=== PATIENT | female | born 1995 | race African-American/Black ===

== ENCOUNTER 2020-08-14 15:18 | Inpatient (IN) ==
--- NOTE | 2020-08-14 15:57 | Emergency Department Note ---
History of Present Illness General Chief complaint: Mental Health Evaluation Stated complaint: MENTAL HEALTH EVALUATION Time Seen by Provider: 08/14/20 15:36 Source: patient History of Present Illness Provider complaint: Depression and suicidal ideation Onset (ago): day(s) 3 Location: head Pain Consistency: + constant Quality: + other (Suicidal) Relieved By: + none Exacerbated By: + other (Stressors) Associated symptoms: no chest pain, no cough, no fever/chills, no headaches, no nausea/vomiting and no shortness of breath This is a 25-year-old female with a history of bipolar disorder presenting for mental health evaluation. The patient called her counselor at [facility] to sent her here for evaluation. She did come via police. The patient has had suicidal ideation and depression for the past 3 days. She states this is because of mostly stressors at school. She feels like she does not fit in here. She is doing poorly in classes. She does not have many friends. She also has issues with her family. She has been looking up ways on the Internet to kill herself. She states that she plans on cutting her wrists. She does admit to a prior suicide attempt with ingestion of antifreeze. She has been taking her psychiatric medications. She does drink alcohol and smokes marijuana. She has been unsuccessfully trying to stop using marijuana. She denies any fever, cough or cold symptoms, vomiting, chest pain, shortness of breath, abdominal pain or diarrhea or known exposure to COVID-19. She does complain of chronic intermittent bilateral knee pain. Home Medications Medication Instructions Recorded Confirmed Type albuterol sulfate 90 mcg/actuation 1 inh INHALATION Q4H PRN 06/15/20 08/14/20 History breath activated powder inhaler,sensor arm brace #1 ea 06/15/20 06/15/20 Rx naproxen 500 mg tablet 500 mg PO BID PRN 06/15/20 08/14/20 History sertraline 50 mg tablet 100 mg PO DAILY 06/15/20 08/14/20 History lamotrigine 25 mg tablet 100 mg PO DAILY tab 07/07/20 08/14/20 History Allergies Allergy/AdvReac Type Severity Reaction Status Date / Time No Known Allergies Allergy Verified 06/15/20 10:06 Past Med/Surg History Medical History Asthma Bipolar disorder Depression Surgical History History of wisdom tooth extraction Family History Father Hypertension Mother Hypertension Grandfather (Maternal) Glaucoma Grandmother (Maternal) Diabetes Brother Diabetes Aunt Fibroids Denies family history of Ovarian cancer Prostate cancer Myocardial infarction Breast cancer Colorectal cancer Stroke Social History Smoking Status: Current every day smoker Tobacco Type: Cigarettes Second Hand Exposure: No; Hx Alcohol Use: Yes Alcohol type: wine Alcohol Intake Frequency: 4 or More x per/Week Hx Substance Use: Yes Non-Prescribed Medications: Marijuana Preferred Language: Occitan Visual Impairment: No Limitations Hearing Ability: Normal marital status: Single Current Living Situation: Alone current occupational status: student How many Children do You have: 0 Feels Safe at Home: Yes and No Childhood Exposure to Second-Hand Smoke: No caffeine: Yes Dental Care, Regularly: No Physical Activity Frequency: 1-2 Times per Week Seatbelt Use: always Sunscreen Use: Yes Review of Systems See HPI for pertinent positives & negatives. and A total of 10 systems reviewed and were otherwise negative Physical Exam Vital Signs Vital Signs - 24 hr 08/14/20 15:20 08/14/20 18:25 Temperature 36.8 C Temperature Source Oral Pulse Rate 95 H Pulse Rate [Apical] 80 Pulse Rhythm Regular Pulse Strength Normal Respiratory Rate 16 18 Respiratory Effort / Characteristics Non-Labored Spontaneous Respiratory Depth Normal Respiratory Pattern Regular Blood Pressure 122/73 Blood Pressure [Left Arm] 134/71 Blood Pressure Mean 89 Blood Pressure Mean [Left Arm] 92 Blood Pressure Position Sitting Pulse Oximetry 98 98 Oxygen Delivery Method Room Air Room Air Sepsis Recent Fever Within 48 Hours No Sepsis New/Unexplained Change in Mental Status No Sepsis Action Taken by Nursing No Action Required Constitutional: Vital signs reviewed. Eyes: Pupils are equal round reactive to light. Conjunctiva are noninjected. ENT: Pharynx is clear without erythema or exudate. Mucous membranes are moist. Neck supple without meningeal signs. Respiratory: Clear to auscultation bilaterally. Breath sounds are equal steph aterally. Cardiovascular: Regular rate and rhythm. No rubs or gallops. GI: Soft, nondistended and nontender. Bowel sounds are present. Musculoskeletal: No peripheral edema. No increased warmth or joint line tenderness to the knees bilaterally. No erythema is noted. Integumentary: No cyanosis. or jaundice. Neurological: The patient is awake and alert. No focal deficits. Psychiatric: Depressed affect. Tearful. Medical Decision Making Differential Diagnosis Bipolar disorder, mood disorder, suicidal ideation, drug abuse, alcohol abuse Medical Records Attestation: I reviewed the patient's medical records. I did perform a limited focused review of portions of the patient's old chart on the electronic medical record. The patient has had no recent pertinent visits to this hospital. Home Medications Current Medication List: was personally reviewed by me Laboratory Data Attestation: I reviewed the patient's lab results. Result diagrams: 08/14/20 16:32 08/14/20 16:32 Lab Results 08/14/20 08/14/20 08/14/20 Range/Units 16:05 16:05 16:10 WBC (4.8-10.8) K/uL RBC (4.2-5.4) M/uL Hgb (12.0-16.0) g/dL Hct (37-47) % MCV (80-100) fL MCH (25-34) pg MCHC (32-36) g/dL RDW Std Deviation (36.4-46.3) fL RDW Coeff of [place] (11.5-14.5) % Plt Count (130-400) K/uL MPV (7.4-10.4) fL Immature Gran % (Auto) % Neut % (Auto) % Lymph % (Auto) % [place] % (Auto) % Eos % (Auto) % Baso % (Auto) % Neut # (Auto) (1.4-6.5) K/uL Lymph # (Auto) (1.2-3.4) K/uL [place] # (Auto) (0.11-0.59) K/uL Eos # (Auto) (0-0.5) K/uL Baso # (Auto) (0-0.2) K/uL Immature Gran # (Auto) (0.00-0.02) K/uL RBC Morphology Sodium (136-145) mmol/L Potassium (3.5-5.1) mmol/L Chloride (98-107) mmol/L Carbon Dioxide (21-32) mmol/L Anion Gap (3-11) BUN (7-18) mg/dl Creatinine (0.6-1.2) mg/dl Est Cr Clr Drug Dosing ml/min Est GFR ( Amer) Est GFR (Non-Af Amer) BUN/Creatinine Ratio (10-20) Glucose (70-99) mg/dl Calcium (8.5-10.1) mg/dl Total Bilirubin (0.2-1) mg/dl AST (15-37) U/L ALT (12-78) U/L Alkaline Phosphatase (45-117) U/L Total Protein (6.4-8.2) gm/dl Albumin (3.4-5.0) gm/dl Globulin (2.5-4.0) gm/dl Albumin/Globulin Ratio (0.9-2) TSH (0.300-4.500) uIu/ml Urine Color Yellow Urine Appearance Clear (Clear) Urine pH 7.5 (4.5-7.5) Ur Specific [place] 1.018 (1.000-1.030) Urine Protein Negative (Negative) Urine Glucose (UA) Negative (Negative) Urine Ketones Negative (Negative) Urine Blood Negative (Negative) Urine Nitrite Negative (Negative) Urine Bilirubin Negative (Negative) Urine Urobilinogen Negative (Negative) Ur Leukocyte Esterase Negative (Negative) POC Ur Test (NEG) Salicylates (2.8-20) mg/dl Urine Opiates Screen (Neg) Ur Methadone, Qual (Neg) Acetaminophen (10-30) ug/ml Urine Barbiturates (Neg) Ur Phencyclidine (PCP) (Neg) U Amphetamin/Meth Scrn (Neg) MDMA (Ecstasy) Screen (Neg) U Benzodiazepines Scrn (Neg) Ur Cocaine Metabolite (Neg) U Marijuana (THC) Screen (Neg) Ethyl Alcohol mg/dL (0-3) mg/dl COVID-19 Eval Order Cov[facility]Rsv at [facility] SARS-CoV-2 (PCR) NEGATIVE (Negative) Influenza Type A (PCR) Negative (Neg) Influenza Type B (PCR) Negative (Neg) RSV (RT-PCR) Negative (Neg) 08/14/20 08/14/20 08/14/20 Range/Units 16:10 16:10 16:32 WBC 7.49 (4.8-10.8) K/uL RBC 4.41 (4.2-5.4) M/uL Hgb 10.1 L (12.0-16.0) g/dL Hct 32.1 L (37-47) % MCV 72.8 L (80-100) fL MCH 22.9 L (25-34) pg MCHC 31.5 L (32-36) g/dL RDW Std Deviation 36.2 L (36.4-46.3) fL RDW Coeff of [place] 13.5 (11.5-14.5) % Plt Count 280 (130-400) K/uL MPV 10.1 (7.4-10.4) fL Immature Gran % (Auto) 0.1 % Neut % (Auto) 65.7 % Lymph % (Auto) 24.4 % [place] % (Auto) 7.3 % Eos % (Auto) 2.4 % Baso % (Auto) 0.1 % Neut # (Auto) 4.91 (1.4-6.5) K/uL Lymph # (Auto) 1.83 (1.2-3.4) K/uL [place] # (Auto) 0.55 (0.11-0.59) K/uL Eos # (Auto) 0.18 (0-0.5) K/uL Baso # (Auto) 0.01 (0-0.2) K/uL Immature Gran # (Auto) 0.01 (0.00-0.02) K/uL RBC Morphology Unremarkable Sodium (136-145) mmol/L Potassium (3.5-5.1) mmol/L Chloride (98-107) mmol/L Carbon Dioxide (21-32) mmol/L Anion Gap (3-11) BUN (7-18) mg/dl Creatinine (0.6-1.2) mg/dl Est Cr Clr Drug Dosing ml/min Est GFR ( Amer) Est GFR (Non-Af Amer) BUN/Creatinine Ratio (10-20) Glucose (70-99) mg/dl Calcium (8.5-10.1) mg/dl Total Bilirubin (0.2-1) mg/dl AST (15-37) U/L ALT (12-78) U/L Alkaline Phosphatase (45-117) U/L Total Protein (6.4-8.2) gm/dl Albumin (3.4-5.0) gm/dl Globulin (2.5-4.0) gm/dl Albumin/Globulin Ratio (0.9-2) TSH (0.300-4.500) uIu/ml Urine Color Urine Appearance (Clear) Urine pH (4.5-7.5) Ur Specific [place] (1.000-1.030) Urine Protein (Negative) Urine Glucose (UA) (Negative) Urine Ketones (Negative) Urine Blood (Negative) Urine Nitrite (Negative) Urine Bilirubin (Negative) Urine Urobilinogen (Negative) Ur Leukocyte Esterase (Negative) POC Ur Test NEG (NEG) Salicylates (2.8-20) mg/dl Urine Opiates Screen Neg (Neg) Ur Methadone, Qual Neg (Neg) Acetaminophen (10-30) ug/ml Urine Barbiturates Neg (Neg) Ur Phencyclidine (PCP) Neg (Neg) U Amphetamin/Meth Scrn Neg (Neg) MDMA (Ecstasy) Screen Neg (Neg) U Benzodiazepines Scrn Neg (Neg) Ur Cocaine Metabolite Neg (Neg) U Marijuana (THC) Screen Neg (Neg) Ethyl Alcohol mg/dL (0-3) mg/dl COVID-19 Eval Order SARS-CoV-2 (PCR) (Negative) Influenza Type A (PCR) (Neg) Influenza Type B (PCR) (Neg) RSV (RT-PCR) (Neg) 08/14/20 08/14/20 08/14/20 Range/Units 16:32 16:32 16:32 WBC (4.8-10.8) K/uL RBC (4.2-5.4) M/uL Hgb (12.0-16.0) g/dL Hct (37-47) % MCV (80-100) fL MCH (25-34) pg MCHC (32-36) g/dL RDW Std Deviation (36.4-46.3) fL RDW Coeff of [place] (11.5-14.5) % Plt Count (130-400) K/uL MPV (7.4-10.4) fL Immature Gran % (Auto) % Neut % (Auto) % Lymph % (Auto) % [place] % (Auto) % Eos % (Auto) % Baso % (Auto) % Neut # (Auto) (1.4-6.5) K/uL Lymph # (Auto) (1.2-3.4) K/uL [place] # (Auto) (0.11-0.59) K/uL Eos # (Auto) (0-0.5) K/uL Baso # (Auto) (0-0.2) K/uL Immature Gran # (Auto) (0.00-0.02) K/uL RBC Morphology Sodium 139 (136-145) mmol/L Potassium 4.3 (3.5-5.1) mmol/L Chloride 110 H (98-107) mmol/L Carbon Dioxide 27 (21-32) mmol/L Anion Gap 2.0 L (3-11) BUN 12 (7-18) mg/dl Creatinine 0.85 (0.6-1.2) mg/dl Est Cr Clr Drug Dosing 92.6 ml/min Est GFR ( Amer) 111.9 Est GFR (Non-Af Amer) 96.6 BUN/Creatinine Ratio 13.9 (10-20) Glucose 86 (70-99) mg/dl Calcium 8.2 L (8.5-10.1) mg/dl Total Bilirubin 0.2 (0.2-1) mg/dl AST 19 (15-37) U/L ALT 35 (12-78) U/L Alkaline Phosphatase 55 (45-117) U/L Total Protein 6.8 (6.4-8.2) gm/dl Albumin 3.3 L (3.4-5.0) gm/dl Globulin 3.5 (2.5-4.0) gm/dl Albumin/Globulin Ratio 0.9 (0.9-2) TSH 1.010 (0.300-4.500) uIu/ml Urine Color Urine Appearance (Clear) Urine pH (4.5-7.5) Ur Specific [place] (1.000-1.030) Urine Protein (Negative) Urine Glucose (UA) (Negative) Urine Ketones (Negative) Urine Blood (Negative) Urine Nitrite (Negative) Urine Bilirubin (Negative) Urine Urobilinogen (Negative) Ur Leukocyte Esterase (Negative) POC Ur Test (NEG) Salicylates < 1.7 L (2.8-20) mg/dl Urine Opiates Screen (Neg) Ur Methadone, Qual (Neg) Acetaminophen < 2 L (10-30) ug/ml Urine Barbiturates (Neg) Ur Phencyclidine (PCP) (Neg) U Amphetamin/Meth Scrn (Neg) MDMA (Ecstasy) Screen (Neg) U Benzodiazepines Scrn (Neg) Ur Cocaine Metabolite (Neg) U Marijuana (THC) Screen (Neg) Ethyl Alcohol mg/dL < 3.0 (0-3) mg/dl COVID-19 Eval Order SARS-CoV-2 (PCR) (Negative) Influenza Type A (PCR) (Neg) Influenza Type B (PCR) (Neg) RSV (RT-PCR) (Neg) MDM Narrative I did evaluate the patient as noted above. The patient was sent here by her counselor for suicidal ideation. She has a plan to cut her wrists. She states that she does not want to be alive anymore. She has a prior history of suicide attempt. I did order a urine analysis. She has no evidence of UTI. Her urine test is negative. I did order and review the patient's blood work as noted in the electronic medical record. Her white blood cell count is not elevated. She has a hemoglobin of 10 but she states she has a prior history of anemia. Electrolytes are unremarkable other than a chloride of 110. Toxicology screen is negative. COVID-19 test is negative.The patient was medically cleared. She was evaluated by the mental health employment case manager who recommended inpatient treatment. The patient was agreeable and signed a 201. She was admitted to the [facility] behavioral unit. Impression & Plan Mood disorder, Suicidal ideation Discharge Plan Visit Data Chief Complaint: Mental Health Evaluation Stated Complaint: MENTAL HEALTH EVALUATION ED Provider: Ernie Harris Discharge Problem: Mood disorder, Suicidal ideation Patient Disposition: Admitted As Inpatient Discharge Instructions Interventions: ED Discharge Assessment Last Done: 08/14/20 19:48
[2020-08-14 16:33] LABS: Appearance Urine Clear (Clear); Bilirubin Urine Negative (Negative); Blood Urine Negative (Negative); Color Urine Yellow; Glucose Urine UA Negative (Negative); Ketones Urine Negative (Negative); Leukocyte Esterase Urine Negative (Negative); Nitrite Urine Negative (Negative); Protein Urine Negative (Negative); Specific Gravity Urine 1.018 (1.000-1.030); Urobilinogen Urine Negative (Negative); pH Urine 7.5 (4.5-7.5)
[2020-08-14 16:48] LABS: Basophils # (auto) 0.01 K/uL (0-0.2); Basophils % (auto) 0.1 %; Eosinophils # (auto) 0.18 K/uL (0-0.5); Eosinophils % (auto) 2.4 %; Hematocrit (blood only) 32.1 % (37-47); Hemoglobin 10.1 g/dL (12.0-16.0); Immature Granulocytes # (auto) 0.01 K/uL (0.00-0.02); Immature Granulocytes % (auto) 0.1 %; Lymphocytes # (auto) 1.83 K/uL (1.2-3.4); Lymphocytes % (auto) 24.4 %; Mean Corpuscular Hemoglobin 22.9 pg (25-34); Mean Corpuscular Hgb Conc 31.5 g/dL (32-36); Mean Corpuscular Volume 72.8 fL (80-100); Mean Platelet Volume 10.1 fL (7.4-10.4); Monocytes # (auto) 0.55 K/uL (0.11-0.59); Monocytes % (auto) 7.3 %; Neutrophils # (auto) 4.91 K/uL (1.4-6.5); Neutrophils % (auto) 65.7 %; Platelet Count 280 K/uL (130-400); RDW Coefficient of Variation 13.5 % (11.5-14.5); RDW Standard Deviation 36.2 fL (36.4-46.3); Red Blood Count 4.41 M/uL (4.2-5.4); White Blood Count 7.49 K/uL (4.8-10.8)
[2020-08-14 16:53] LABS: Influenza A virus by PCR Negative (Neg); Influenza B virus by PCR Negative (Neg); RSV by PCR Negative (Neg); SARS CoV2 RNA(COVID-19) InHosp NEGATIVE (Negative)
[2020-08-14 17:04] LABS: Amphetamines+Metham, Urine Neg (Neg); Barbiturates, Urine Neg (Neg); Benzodiazepine, Urine Neg (Neg); Cocaine, Urine Neg (Neg); MDMA (Ecstacy), Urine Neg (Neg); Methadone, Urine Neg (Neg); Opiate, Urine Neg (Neg); Phencyclidine, Urine Neg (Neg)
[2020-08-14 17:09] LABS: RBC Morphology Unremarkable
[2020-08-14 17:15] LABS: Acetaminophen < 2 ug/ml (10-30); Albumin Level 3.3 gm/dl (3.4-5.0); BUN Creatinine Ratio 13.9 (10-20); Calcium 8.2 mg/dl (8.5-10.1); Creatinine Clr Calc Pharmacy 92.6 ml/min; Est GFR (African American) 111.9; Est GFR (Non-African American) 96.6; Potassium 4.3 mmol/L (3.5-5.1); Salicylate < 1.7 mg/dl (2.8-20)
[2020-08-14 17:26] LABS: Albumin Globulin Ratio 0.9 (0.9-2); Bilirubin,Total 0.2 mg/dl (0.2-1); Globulin 3.5 gm/dl (2.5-4.0); Thyroid Stimulating Hormone 1.01 uIu/ml (0.300-4.500); Total Protein 6.8 gm/dl (6.4-8.2)
[2020-08-14] MEDS ORDERED: BISMUTH SUBSALICYLATE LIQD 236 ML PO PRN (19:21)
[2020-08-14] MEDS ORDERED: NICOTINE POLACRILEX 2 MG GUM MT PRN (19:21)
[2020-08-14] MEDS ORDERED: ACETAMINOPHEN 325 MG TAB PO PRN (19:21)
[2020-08-14] MEDS ORDERED: SODIUM CHLORIDE 0.65% NA SOLN 45 ML (OCEAN) PRN (19:21)
[2020-08-14] MEDS ORDERED: ALUMINUM/MAGNESIUM SUSP 30 ML UDC PO PRN (19:21)
[2020-08-14] MEDS ORDERED: MAGNESIUM HYDROXIDE SUSP 30 ML UDC PO PRN (19:21)
[2020-08-14] MEDS ORDERED: hydrOXYzine HCl 25 MG TAB PO PRN (19:21)
[2020-08-14] MEDS ORDERED: ALBUTEROL HFA 8 GM INHALER INH PRN (19:41)
[2020-08-14] MEDS: NAPROXEN 250 MG TAB PO PRN (22:03)
[2020-08-14] MEDS: hydrOXYzine HCl 25 MG TAB PO PRN (22:54)
--- NOTE | 2020-08-15 06:40 | History & Physical ---
Date of Service August 15, 2020 Impression / Recommendations Impression Patient with recent diagnosis of bipolar disorder who presents with suicidal ideation in the context of mood instability, school and relationship stress. She came to [place] last semester to get a graduate degree, and reports feeling overwhelmed by schoolwork, with limited local supports. She started treatment at [facility] and recently started lamotrigine, which we will continue to titrate to target mood stability. Inpatient treatment is medically necessary at this time due to the severity of her symptoms and risk for suicide if discharged prematurely. (1) Suicidal ideation: 08/15 - Continue voluntary inpatient treatment, suicide checks for safety. - Group and therapy, work on healthy coping skills and discharge safety plan. (2) Bipolar disorder: 08/15 -patient reports current medication regimen has been helpful, but continues to have manic and depressive episodes. She just recently started lamotrigine, and has been on 100 mg for 2 weeks, so will increase to 200 mg daily to target mood instability. Continue sertraline 100 mg daily, and coordinate with outpatient clinicians at [facility]/schedule follow-up appointments. 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 Chief Complaint "Last week I started getting really overwhelmed...". History of Present Illness Patient presented to the ER via police after talking to her outpatient therapist who recommended inpatient treatment. She reported a diagnosis of bipolar disorder with depressive symptoms (anergia, anhedonia, social withdraw, and increased sleep), and last week had a manic episode with increased spending, eating, and activity. She reported school and relationship stressors, stating she was not doing well in school, not fit in, and strained relationships with family. She reported drinking 4+ days/week and smoking marijuana. Admission labs notable for low hemoglobin and hematocrit, normal TSH, UA, negative UDS and test. She signed in voluntarily for treatment. On my assessment, she states she was feeling stressed and overwhelmed due to school, which worsened last week as preparing for a big exam last . During that week, she felt more anxious and energized, but the day following the exam started to feel depressed. She "tried to take a break" over the weekend and rest, but woke up Friday morning feeling overwhelmed, depressed and suicidal, and "started researching ways" to harm herself online. She called her therapist who advised her to come in to the hospital. Additional stressors are upcoming finals, limited local support. Has had suicidal thoughts in the past, "just wanting to end it," and attempted to end her life last semester by overdose on Ibuprofen and antifreeze, stating she doesn't remember how many pills she took. She did not seek treatment at the time, but afterwards started treatment at [facility]. She reports being diagnosed with bipolar disorder at that time, describes manic episodes as up to a week of high mood, lots of energy, rapid speech and thoughts, wanting "instant gratification," with excessive spending (getting take out as doesn't feel like cooking), spending $50-100 more than she'd like. Denies decreased need for sleep, psychotic symptoms. Mood has been depressed since Fri. (4 days ago), with no motivation, just wanting to watch tv or read, increase in appetite, increase in sleep (napping between classes). Denies anhedonia. Thinks lamotrigine was added about a month ago, has been on 100mg for 2 weeks, and thinks it is helping to stabilize mood. Reports long standing anxiety/worry, "feeling stressed out," focusing on "the worst case scenarios," which she usually manages by exercise, but has not been doing that recently. [place] panicky at time of her exam last week with difficulty breathing and heart racing (denies any previous panic), PTSD, OCD, HI. Has a couple of friends here, but main supports are family and friends in [place]. She is planning to return home for a visit on and is very focused on making her train. She would like to work on stress management and "information on how to handle my manic episodes." Past Psychiatric History Previous Psych History: Previous treatment in [place] while in undergraduate, was initially diagnosed with depression and started on sertraline, recently was changed to bipolar and lamotrigine was added. Current Psychiatric Diagnosis: per EMR, depression and bipolar Outpatient Services: [facility]: psychiatrist Dr. Alvarado, therapist Janet. Previous Psych Admissions: Denies Do You Have Access To A Gun?: No History of Previous Suicide Attempt: Yes (ingested antifreeze and Ibuprofen last semester) Past Medication Trials: Denies Allergies Allergy/AdvReac Type Severity Reaction Status Date / Time No Known Allergies Allergy Verified 06/15/20 10:06 Home Medications Medication Instructions Recorded Confirmed Type albuterol sulfate 90 mcg/actuation 1 inh INHALATION Q4H PRN 06/15/20 08/14/20 History breath activated powder inhaler,sensor arm brace #1 ea 06/15/20 06/15/20 Rx naproxen 500 mg tablet 500 mg PO BID PRN 06/15/20 08/14/20 History sertraline 50 mg tablet 100 mg PO DAILY 06/15/20 08/14/20 History lamotrigine 25 mg tablet 100 mg PO DAILY tab 07/07/20 08/14/20 History Family History Family History of: Depression (mother) Alcohol History Hx of Alcohol Use Over the Past 12 Months: Yes AUDIT Total Score: 3 Smoking Use tobacco type: cigarettes Smoking Status: Current every day smoker Smoking packs per day: 0.3 Substance History Hx of Prescription Med Misuse Over the Past 12 Months: No Hx of Over the Counter Med Misuse Over the Past 12 Months: No Hx of Inhalent Misuse Over the Past 12 Months: No Hx of Organic Substance Use Over the Past 12 Months: Yes Hx of Illegal Substances/Street Drug Use Over Past 12 Months: No Problems as a Result of Past Substance Use: None Identified Personal History Living Arrangements: Apartment Living Arrangements Comments: alone in [place] Childhood: From [place], and went to [facility] there. 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) Marital Status: Single Beliefs That Will Affect Care: None Current Legal Problems: No Hx Traumatic Life Events: No Patient History Medical History Asthma Bipolar disorder Depression Surgical History History of wisdom tooth extraction Family History Father Hypertension Mother Hypertension Grandfather (Maternal) Glaucoma Grandmother (Maternal) Diabetes Brother Diabetes Aunt Fibroids Denies family history of Ovarian cancer Prostate cancer Myocardial infarction Breast cancer Colorectal cancer Stroke Social History Smoking Status: Current every day smoker Tobacco Type: Cigarettes Second Hand Exposure: No; Hx Alcohol Use: Yes Alcohol type: wine Alcohol Intake Frequency: 4 or More x per/Week Hx Substance Use: Yes Non-Prescribed Medications: Marijuana Preferred Language: German Communication Ability: Effective Visual Impairment: No Limitations Hearing Ability: Normal Beliefs That Will Affect Care: None marital status: Single Current Living Situation: Alone current occupational status: student How many Children do You have: 0 Feels Safe at Home: Yes and No Childhood Exposure to Second-Hand Smoke: No caffeine: Yes Dental Care, Regularly: No Physical Activity Frequency: 1-2 Times per Week Seatbelt Use: always Sunscreen Use: Yes Assistive Devices: Glasses Assistive Devices Comment: Pt does wear glasses and retainers but left them at home. Review of Systems Review of Systems: All systems reviewed & are unremarkable except as noted in HPI & below chronic knee pain - has appt with orthopedics later this month Physical Exam Psychiatric: Orientation: alert and cooperative Apperance: appropriately dressed, appropriately groomed and appeared stated age Well-nourished well- developed black female appearing her stated age. Dressed in khakis, T-shirt, wrapped in a blanket. Wearing a hair cap. Seated in no acute distress. Eye Contact: + poor eye contact Avoids eye contact. Motor Behavior: steady gait and station and no abnormal motor movements Speech: normal rate/rhythm/volume of speech Reactive, incongruent with stated mood. Mood: + depressed mood Thought Process: goal directed thought process Thought Content: reality based without delusions Suicidal Thoughts: + reports suicidal thoughts Homicidal Thoughts: denies homicidal thoughts Hallucinations: no auditory hallucinations and no visual hallucinations Cognition: recent memory grossly intact, attention grossly intact and language grossly intact; + remote memory not intact (Unable to recall information about her suicide attempt last semester) Insight: + fair insight Judgement: + fair judgement Vital Signs (Past 24 Hours): Last Vital Signs Temp 37.2 C 08/14/20 21:04 Pulse 72 08/14/20 21:04 Resp 20 08/14/20 21:04 BP 103/66 08/14/20 21:04 Pulse Ox 100 08/14/20 21:04 Exam Statement: A physical exam was performed in the ER prior to admission to the unit by Dr. Ernie Harris. I accept that physical as correct/medical cl earance for the inpatient physical exam. Results & Data ([facility]) Laboratory Results Laboratory Results - last 24 hr 08/14/20 08/14/20 08/14/20 16:05 16:05 16:10 WBC RBC Hgb Hct MCV MCH MCHC RDW Std Deviation RDW Coeff of [place] Plt Count MPV Immature Gran % (Auto) Neut % (Auto) Lymph % (Auto) [place] % (Auto) Eos % (Auto) Baso % (Auto) Neut # (Auto) Lymph # (Auto) [place] # (Auto) Eos # (Auto) Baso # (Auto) Immature Gran # (Auto) RBC Morphology Sodium Potassium Chloride Carbon Dioxide Anion Gap BUN Creatinine Est Cr Clr Drug Dosing Est GFR ( Amer) Est GFR (Non-Af Amer) BUN/Creatinine Ratio Glucose Calcium Total Bilirubin AST ALT Alkaline Phosphatase Total Protein Albumin Globulin Albumin/Globulin Ratio TSH Urine Color Yellow Urine Appearance Clear Urine pH 7.5 Ur Specific [place] 1.018 Urine Protein Negative Urine Glucose (UA) Negative Urine Ketones Negative Urine Blood Negative Urine Nitrite Negative Urine Bilirubin Negative Urine Urobilinogen Negative Ur Leukocyte Esterase Negative POC Ur Test Salicylates Urine Opiates Screen Ur Methadone, Qual Acetaminophen Urine Barbiturates Ur Phencyclidine (PCP) U Amphetamin/Meth Scrn MDMA (Ecstasy) Screen U Benzodiazepines Scrn Ur Cocaine Metabolite U Marijuana (THC) Screen Ethyl Alcohol mg/dL COVID-19 Eval Order CovFluRsv at [facility] SARS-CoV-2 (PCR) NEGATIVE Influenza Type A (PCR) Negative Influenza Type B (PCR) Negative RSV (RT-PCR) Negative 08/14/20 08/14/20 08/14/20 16:10 16:10 16:32 WBC 7.49 RBC 4.41 Hgb 10.1 L Hct 32.1 L MCV 72.8 L MCH 22.9 L MCHC 31.5 L RDW Std Deviation 36.2 L RDW Coeff of [place] 13.5 Plt Count 280 MPV 10.1 Immature Gran % (Auto) 0.1 Neut % (Auto) 65.7 Lymph % (Auto) 24.4 [place] % (Auto) 7.3 Eos % (Auto) 2.4 Baso % (Auto) 0.1 Neut # (Auto) 4.91 Lymph # (Auto) 1.83 [place] # (Auto) 0.55 Eos # (Auto) 0.18 Baso # (Auto) 0.01 Immature Gran # (Auto) 0.01 RBC Morphology Unremarkable Sodium Potassium Chloride Carbon Dioxide Anion Gap BUN Creatinine Est Cr Clr Drug Dosing Est GFR ( Amer) Est GFR (Non-Af Amer) BUN/Creatinine Ratio Glucose Calcium Total Bilirubin AST ALT Alkaline Phosphatase Total Protein Albumin Globulin Albumin/Globulin Ratio TSH Urine Color Urine Appearance Urine pH Ur Specific [place] Urine Protein Urine Glucose (UA) Urine Ketones Urine Blood Urine Nitrite Urine Bilirubin Urine Urobilinogen Ur Leukocyte Esterase POC Ur Test NEG Salicylates Urine Opiates Screen Neg Ur Methadone, Qual Neg Acetaminophen Urine Barbiturates Neg Ur Phencyclidine (PCP) Neg U Amphetamin/Meth Scrn Neg MDMA (Ecstasy) Screen Neg U Benzodiazepines Scrn Neg Ur Cocaine Metabolite Neg U Marijuana (THC) Screen Neg Ethyl Alcohol mg/dL COVID-19 Eval Order SARS-CoV-2 (PCR) Influenza Type A (PCR) Influenza Type B (PCR) RSV (RT-PCR) 08/14/20 08/14/20 08/14/20 16:32 16:32 16:32 WBC RBC Hgb Hct MCV MCH MCHC RDW Std Deviation RDW Coeff of [place] Plt Count MPV Immature Gran % (Auto) Neut % (Auto) Lymph % (Auto) [place] % (Auto) Eos % (Auto) Baso % (Auto) Neut # (Auto) Lymph # (Auto) [place] # (Auto) Eos # (Auto) Baso # (Auto) Immature Gran # (Auto) RBC Morphology Sodium 139 Potassium 4.3 Chloride 110 H Carbon Dioxide 27 Anion Gap 2.0 L BUN 12 Creatinine 0.85 Est Cr Clr Drug Dosing 92.6 Est GFR ( Amer) 111.9 Est GFR (Non-Af Amer) 96.6 BUN/Creatinine Ratio 13.9 Glucose 86 Calcium 8.2 L Total Bilirubin 0.2 AST 19 ALT 35 Alkaline Phosphatase 55 Total Protein 6.8 Albumin 3.3 L Globulin 3.5 Albumin/Globulin Ratio 0.9 TSH 1.010 Urine Color Urine Appearance Urine pH Ur Specific [place] Urine Protein Urine Glucose (UA) Urine Ketones Urine Blood Urine Nitrite Urine Bilirubin Urine Urobilinogen Ur Leukocyte Esterase POC Ur Test Salicylates < 1.7 L Urine Opiates Screen Ur Methadone, Qual Acetaminophen < 2 L Urine Barbiturates Ur Phencyclidine (PCP) U Amphetamin/Meth Scrn MDMA (Ecstasy) Screen U Benzodiazepines Scrn Ur Cocaine Metabolite U Marijuana (THC) Screen Ethyl Alcohol mg/dL < 3.0 COVID-19 Eval Order SARS-CoV-2 (PCR) Influenza Type A (PCR) Influenza Type B (PCR) RSV (RT-PCR) Current Inpatient Medications Current Inpatient Medications: Current Inpatient Medications Acetaminophen (Acetaminophen 325 Mg Tab) 650 mg PO Q4H PRN PRN Reason: Headache or Minor Fever Stop: 09/13/20 19:20 Al Hydrox/Mg Hydrox/Simethicone (Aluminum/Magnesium Susp 30 Ml Udc) 30 ml PO Q4H PRN PRN Reason: GI Upset Stop: 09/13/20 19:20 Albuterol (Albuterol Hfa 8 Gm Inhaler) 1 puffs INH Q4H PRN PRN Reason: Congestion Stop: 09/13/20 19:40 Bismuth Subsalicylate (Bismuth Subsalicylate Liqd 236 Ml) 15 ml PO PRN PRN PRN Reason: Loose Stool Stop: 09/13/20 19:20 Hydroxyzine HCl (Hydroxyzine Hcl 25 Mg Tab) 50 mg PO HSZ PRN PRN Reason: Insomnia Stop: 09/13/20 19:20 Last Admin: 08/14/20 22:54 Dose: 50 mg Documented by: Hydroxyzine HCl (Hydroxyzine Hcl 25 Mg Tab) 25 mg PO Q4H PRN PRN Reason: Anxiety Stop: 09/13/20 19:20 Lamotrigine (Lamotrigine 100 Mg Tab) 100 mg PO DAILY CONNIE Stop: 09/14/20 08:59 Magnesium Hydroxide (Magnesium Hydroxide Susp 30 Ml Udc) 30 ml PO DAILY PRN PRN Reason: Constipation Stop: 09/13/20 19:20 Naproxen (Naproxen 250 Mg Tab) 500 mg PO BID PRN PRN Reason: pain Stop: 09/13/20 20:59 Last Admin: 08/14/20 22:03 Dose: 500 mg Documented by: Nicotine Polacrilex (Nicotine Polacrilex 2 Mg Gum) 1 piece MT PRN PRN PRN Reason: Nicotine Withdrawal Stop: 09/13/20 19:20 Sertraline HCl (Sertraline Hcl 100 Mg Tablet) 100 mg PO DAILY CONNIE Stop: 09/14/20 08:59 Sodium Chloride (Sodium Chloride 0.65% Na Soln 45 Ml ([place])) 1 - 2 sprays NA PRN PRN PRN Reason: Nasal Dryness/Congestion Stop: 09/13/20 19:20
[2020-08-15] MEDS ORDERED: lamoTRIgine 100 MG TAB PO SCH (09:00)
[2020-08-15] MEDS: SERTRALINE HCL 100 MG TABLET PO SCH (09:12)
[2020-08-15] MEDS ORDERED: lamoTRIgine 100 MG TAB PO ONE (09:56)
[2020-08-15] MEDS: NAPROXEN 250 MG TAB PO PRN (17:17)
[2020-08-15] MEDS: hydrOXYzine HCl 25 MG TAB PO PRN (20:15)
[2020-08-16] MEDS: SERTRALINE HCL 100 MG TABLET PO SCH (09:02)
[2020-08-16] MEDS: lamoTRIgine 100 MG TAB PO SCH (09:02)
--- NOTE | 2020-08-16 12:02 | Psychiatric Progress Note ---
Date of Service August 16, 2020 Impression / Recommendations Impression Patient with recent diagnosis of bipolar disorder who presents with suicidal ideation in the context of mood instability, school and relationship stress. She came to [place] last semester to get a graduate degree, and reports feeling overwhelmed by schoolwork, with limited local supports. She started treatment at [facility] and recently started lamotrigine, which we will continue to titrate to target mood stability. Inpatient treatment is medically necessary at this time due to the severity of her symptoms and risk for suicide if discharged prematurely. (1) Suicidal ideation: 08/15 - Continue voluntary inpatient treatment, suicide checks for safety. - Group and therapy, work on healthy coping skills and discharge safety plan. 08/16 - Pt denying SI - Will encourage completion of written safety plan (2) Bipolar disorder: 08/15 -patient reports current medication regimen has been helpful, but continues to have manic and depressive episodes. She just recently started lamotrigine, and has been on 100 mg for 2 weeks, so will increase to 200 mg daily to target mood instability. Continue sertraline 100 mg daily, and coordinate with outpatient clinicians at [facility]/schedule follow-up appointments. 08/16 - Continue scheduled medication regimen as above. Pt does request to discuss medications for sleep. She admits hydroxyzine has been helpful and is hopeful to continue this on discharge. Willing for a retrial of melatonin, which she states she had used in the past so will have available as needed - Aside from episodes of migraine headaches, patient has been cooperative and engaged in programming. - Pt will continue services at [facility] and is hopeful for possible discharge tomorrow - Family meeting was offered and declined consistently by patient, she has been cooperative otherwise (3) Asthma: 08/15 - Continue home inhaler Risk Factors Assessment Male: No Do You Have Access To A Gun?: No Health Problems: Yes Mental Health Diagnoses: Yes Substance Use Disorders: Yes Previous Attempt: Yes Previous Psychiatric Hospitalization: No Hopelessness: Yes Smoker: Yes Protective Factors Assessment : No Responsible for Young Children: No Employed: No Good Rapport with Provider: Yes Interval History Identifying Information 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 Chief Complaint "Um, yeah...I'm sorry. My head is just..." Review of Systems Notes Constitutional: reports migraine headaches, frequent since admission Cardiovascular: denied Respiratory: denied Gastrointestinal: denied Neurological: denied Psychiatric: denies symptoms other than stated above Total of at least 10 systems reviewed, pertinent positives as above and in HPI. Sleep Information Total Hours of Sleep: 8.5 Sleep Comments: pt given vistarl per rn. pt on q-15 minute check Meal Information Percent Meal Consumed - Breakfast: 100 Percent Meal Consumed - Lunch: 100 Percent Meal Consumed - Dinner: 80 Subjective Subjective Patient was seen & assessed and interval progress reviewed with treatment team. Staff report the patient has been participating in group programming. She has been denying SI. Pt has been getting daily migraines, but otherwise is interactive and pleasant. Pt is refusing a family meeting. She rated her mood an 8/10 and "calm" last evening. Pt was seen today to assess progress since admission. Unfortunately, at the time of our encounter the patient is experiencing a migraine headache - she had been isolated to her room for most of the afternoon. Pt did agree to conversation to provider this ISABELLA with updates on her treatment thus far. Pt denies ongoing SI and admits that overall she is feeling better. Pt believes she has benefitted most from 1:1 conversations with staff. She reports feeling confident with medication changes, but did wish to discuss sleep medications in greater detail. Pt remains hopeful for discharge tomorrow. She did request ice water which was provided, but otherwise denied additional needs at this time. Physical Exam Psychiatric Orientation: alert, oriented x 3 and cooperative (at least superficially) Apperance: appropriately dressed and appropriately groomed Pt is observed to be laying in dark room, blinds closed. Ice pack is covering her eyes. She is resting due to current migraine headache Eye Contact: + poor eye contact (eyes covered with ice pack for majority of encounter) Motor Behavior: no abnormal motor movements (observed while laying in bed) Speech: normal rate/rhythm/volume of speech Affect: + blunted affect (subdued) has a migraine headache at time of encounter Mood: no depressed mood and no anxious mood "a lot better" Thought Process: goal directed thought process and clear/coherent thought process Thought Content: reality based without delusions; no hopelessness and no worthlessness Suicidal Thoughts: denies suicidal thoughts and denies suicidal intent Homicidal Thoughts: denies homicidal thoughts Hallucinations: no auditory hallucinations and no visual hallucinations Cognition: attention grossly intact and language grossly intact Estimated Intelligence: consistent with education level Insight: + fair insight Judgement: + fair judgement Vital Signs (Past 24 Hours) Last Vital Signs Temp 36.7 C 08/16/20 06:55 Pulse 74 08/16/20 06:56 Resp 16 08/16/20 06:55 BP 100/63 08/16/20 06:56 Pulse Ox 100 08/14/20 21:04 Results & Data ([facility]) Current Inpatient Medications Current Inpatient Medications: Current Inpatient Medications Acetaminophen (Acetaminophen 325 Mg Tab) 650 mg PO Q4H PRN PRN Reason: Headache or Minor Fever Stop: 09/13/20 19:20 Al Hydrox/Mg Hydrox/Simethicone (Aluminum/Magnesium Susp 30 Ml Udc) 30 ml PO Q4H PRN PRN Reason: GI Upset Stop: 09/13/20 19:20 Albuterol (Albuterol Hfa 8 Gm Inhaler) 1 puffs INH Q4H PRN PRN Reason: Congestion Stop: 09/13/20 19:40 Bismuth Subsalicylate (Bismuth Subsalicylate Liqd 236 Ml) 15 ml PO PRN PRN PRN Reason: Loose Stool Stop: 09/13/20 19:20 Hydroxyzine HCl (Hydroxyzine Hcl 25 Mg Tab) 50 mg PO HSZ PRN PRN Reason: Insomnia Stop: 09/13/20 19:20 Last Admin: 08/15/20 20:15 Dose: 50 mg Documented by: Hydroxyzine HCl (Hydroxyzine Hcl 25 Mg Tab) 25 mg PO Q4H PRN PRN Reason: Anxiety Stop: 09/13/20 19:20 Lamotrigine (Lamotrigine 100 Mg Tab) 200 mg PO DAILY CONNIE Stop: 09/15/20 08:59 Last Admin: 08/16/20 09:02 Dose: 200 mg Documented by: Magnesium Hydroxide (Magnesium Hydroxide Susp 30 Ml Udc) 30 ml PO DAILY PRN PRN Reason: Constipation Stop: 09/13/20 19:20 Naproxen (Naproxen 250 Mg Tab) 500 mg PO BID PRN PRN Reason: pain Stop: 09/13/20 20:59 Last Admin: 08/15/20 17:17 Dose: 500 mg Documented by: Nicotine Polacrilex (Nicotine Polacrilex 2 Mg Gum) 1 piece MT PRN PRN PRN Reason: Nicotine Withdrawal Stop: 09/13/20 19:20 Sertraline HCl (Sertraline Hcl 100 Mg Tablet) 100 mg PO DAILY CONNIE Stop: 09/14/20 08:59 Last Admin: 08/16/20 09:02 Dose: 100 mg Documented by: Sodium Chloride (Sodium Chloride 0.65% Na Soln 45 Ml ([place])) 1 - 2 sprays NA PRN PRN PRN Reason: Nasal Dryness/Congestion Stop: 09/13/20 19:20 Mental Health & Subst Abuse Tx Psychiatrist Name of Psychiatrist: Jay Alvarado Psychiatrist's Psychiatric Appointment Comment: Virtual appt Therapist Name of Therapist: Jay Whitley Therapist's Date of Therapist Appointment: 08/18/20 Time of Therapist Appointment: 11:00 a.m. Therapy Appointment Comment: Virtual appt Public Address System Installer Name of Public Address System Installer: [facility] Lisa Feng Phone Number for Public Address System Installer: [phone] Date of Appointment with Public Address System Installer: 08/22/20 Time of Appointment with Public Address System Installer: 1:00 p.m. Case Management Appointment Comment: Will call you to discuss school reintegration Post Discharge Appointments Primary Care Physician Name Of Family Doctor: [facility] Time of Appointment with PCP: Please follow up as needed Provider Appointment Comment: [facility] Other #1: Name of Aftercare Appointment: [facility] Phone Number of Aftercare Appointment: [phone] Contact Information Discharge Discharge Address: [address] [place] [address], [place] [address]
[2020-08-16] MEDS: NAPROXEN 250 MG TAB PO PRN (14:22)
[2020-08-16] MEDS: hydrOXYzine HCl 25 MG TAB PO PRN (20:57)
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
[2020-08-17] MEDS: SERTRALINE HCL 100 MG TABLET PO SCH (09:32)
[2020-08-17] MEDS: lamoTRIgine 100 MG TAB PO SCH (09:32)
== END 2020-08-17 11:00 | disposition home or self-care (01) | DRG 885 ==
LOC: ED 15:18 → 3S 19:21

== ENCOUNTER 2021-06-07 13:47 | Inpatient (IN) ==
[2021-06-07] MEDS ORDERED: LORazepam 2 MG/ML VIAL (IM USE) IM STA ×2 (14:01→17:37)
[2021-06-07] MEDS ORDERED: HALOPERIDOL LACTATE 5 MG/ML 1 ML VIAL IM STA (14:01)
--- NOTE | 2021-06-07 14:19 | Emergency Department Note ---
Impression & Plan Altered mental status, Confusion, Bipolar disorder, Anemia ED Provider Note NAME: WHITNEY NOLASCO AGE: 26 SEX: F : 1995 ARRIVES VIA: Ambulance INFORMANT: Patient, EMS ED PROVIDER(S): Beck Lua DO CHIEF COMPLAINT: Agitation HPI: Patient is a 26-year-old female brought in by EMS as she was found in the hallway of the building thrashing around on the floor. EMS notes that they gave her benzos prior to arrival and this improved. She was not having a seizure and she was intermittently talking. Upon arrival to the ER she is intermittently thrashing about in the stretcher and then will lay back and will intermittently be talking. She has some pressured speech and is very easily agitated. She denies any suicidal or homicidal ideations. She does admit to depression. She denies any headache or change in vision. No chest pain or shortness of breath. No nausea, vomiting or diarrhea. She is able to elaborate that she is here for school initially from outside the [facility]. She admits that she smokes marijuana but denies all other drugs and alcohol. ROS: See above HPI for pertinent positives & negatives. A total of 10 systems reviewed and were otherwise negative. PAST MEDICAL HISTORY:See Below PAST SURGICAL HISTORY:See Below FAMILY HISTORY:See Below SOCIAL HISTORY:See Below HOME MEDICATIONS:See Below ALLERGIES:See Below VITALS:See Below PHYSICAL EXAMINATION: GENERAL: Sitting up in bed, alert, intermittently agitated thrashing about EYE EXAM: Conjunctive is injected. PERRL and EOM's grossly intact. HEAD: NC/AT OROPHARYNX: no exudate, no erythema, lips, buccal mucosa, and tongue normal and mucous membranes are moist NECK: supple, no nuchal rigidity, no adenopathy, non-tender LUNGS: Clear to auscultation. Normal chest wall mechanics HEART: no murmurs, S1 normal and S2 normal ABDOMEN: abdomen soft, non-tender, normo-active bowel sounds, no masses, no rebound or guarding. BACK: Back is symmetrical on inspection and there is no deformity, no midline tenderness, no CVA tenderness. SKIN: no rashes and no bruising UPPER EXTREMITIES: upper extremities are grossly normal. LOWER EXTREMITIES: No pitting edema. NEURO EXAM: Awake alert intermittently following commands. No focal deficit. MEDICAL DECISION MAKING: Patient is a 26-year-old female who presents the ER for the above-stated compla int. She was brought in by EMS for confusion and agitation. IV was established blood was obtained. Labs show no significant leukocytosis. She was afebrile. Mild anemia at 9.8 consistent with previous. She was slightly tachycardic. BMP along with LFTs bilirubin and TSH was unremarkable. hCG was negative. UA was contaminated with multiple epithelial cells. Tox was negative in regards to sa licylates, acetaminophen and alcohol. UA tox is otherwise pending. Initially she was fairly agitated and intermittently following commands. EMS did give her a dose of Ativan prior to arrival. On reevaluation she has become lethargic/unresponsive but moans to sternal rub. She was given IV fluids. Uncertain if she ingested additional medications prior to arrival with her previous psychiatric history and suicide ideations. No obvious signs of infections. Discussed with hospitalist for further evaluation/observation as I do favor that she likely ingested something else prior to arrival and prolonged observation and confusion. Triage Nursing notes reviewed. Limited review of prior medical records performed Vital Signs: reviewed and remarkable for no significant abnormalities Differential diagnosis: Differential diagnoses includes but is not limited to toxic, metabolic, infectious, traumatic, cardiac, neurologic, hematologic, psychiatric and inflammatory etiologies. ER treatment provided: See below Diagnostics interpreted by me: ECG: Sinus rhythm rate 88 Normal axis No PVCs Diffuse J-point elevation QTC 430 Cardiac Monitoring: An order was placed for continuous cardiac monitoring. The monitor shows a rate of 120 with sinus rhythm. Laboratory studies: As stated above and show below. Imaging studies: CT head was negative Chest x-ray was unremarkable Consultation(s): Discussed with Livier from the Hospitalist service from [facility] service Procedures: none Critical Care: None Past Med/Surg History Medical History Asthma Bipolar disorder Pain of right patellofemoral joint Suicidal ideation Surgical History History of wisdom tooth extraction Family History Father Hypertension Mother Hypertension Grandfather (Maternal) Glaucoma Grandmother (Maternal) Diabetes Brother Diabetes Aunt Fibroids Denies family history of Ovarian cancer Prostate cancer Myocardial infarction Breast cancer Colorectal cancer Stroke Social History (Updated 11/09/20 @ 10:04 by Gisel Jamison) Smoking Status: Unknown if ever smoked Tobacco Type: Cigarettes Cigarettes Per Day: 2; Second Hand Exposure: No; Hx Alcohol Use: Yes Alcohol type: wine Alcohol Intake Frequency: 4 or More x per/Week Hx Substance Use: Yes Non-Prescribed Medications: Marijuana Preferred Language: Honduran Communication Ability: Effective Visual Impairment: No Limitations Hearing Ability: Normal Road Roller Engineer Required: No Beliefs That Will Affect Care: None marital status: Single Current Living Situation: Alone current occupational status: student How many Children do You have: 0 Feels Safe at Home: Declines to Answer Childhood Exposure to Second-Hand Smoke: No caffeine: Yes Dental Care, Regularly: No Physical Activity Frequency: 1-2 Times per Week Seatbelt Use: always Sunscreen Use: Yes Assistive Devices: Glasses Allergies Allergies Allergy/AdvReac Type Severity Reaction Status Date / Time No Known Allergies Allergy Verified 06/07/21 15:48 Home Meds Home Medications Medication Instructions Recorded Confirmed albuterol sulfate 90 mcg/actuation 1 inh INHALATION Q4H PRN 06/15/20 11/09/20 breath activated powder inhaler,sensor naproxen 500 mg tablet 500 mg PO BID PRN 06/15/20 11/09/20 sertraline 50 mg tablet 100 mg PO DAILY 06/15/20 11/09/20 Previous Rx's Medication Instructions Recorded arm brace (Wrist Brace) #1 ea 06/15/20 lamotrigine 100 mg tablet 200 mg PO DAILY #60 tab 08/17/20 Results & Data (ED) Vital Signs Vital Signs - 24 hr 06/07/21 15:00 06/07/21 15:08 Temperature 37.2 C Temperature Source Oral Pulse Rate 120 H Respiratory Rate 20 Blood Pressure 128/73 Blood Pressure Mean 91 Blood Pressure Position Lying Pulse Oximetry 97 97 Oxygen Delivery Method Room Air Room Air Sepsis Recent Fever Within 48 Hours No Sepsis New/Unexplained Change in Mental Status N/A Sepsis Action Taken by Nursing No Action Required Laboratory Data Result diagrams: 06/07/21 14:09 06/07/21 14:11 Lab Results 06/07/21 06/07/21 06/07/21 Range/Units 14:07 14:09 14:09 WBC 8.99 (4.8-10.8) K/uL RBC 4.50 (4.2-5.4) M/uL Hgb 9.8 L (12.0-16.0) g/dL Hct 32.4 L (37-47) % MCV 72.0 L (80-100) fL MCH 21.8 L (25-34) pg MCHC 30.2 L (32-36) g/dL RDW Std Deviation 38.4 (36.4-46.3) fL RDW Coeff of [place] 14.7 H (11.5-14.5) % Plt Count 280 (130-400) K/uL MPV 10.5 H (7.4-10.4) fL Immature Gran % (Auto) 0.2 % Neut % (Auto) 70.9 % Lymph % (Auto) 16.8 % Woodson % (Auto) 9.7 % Eos % (Auto) 2.3 % Baso % (Auto) 0.1 % Neut # (Auto) 6.37 (1.4-6.5) K/uL Lymph # (Auto) 1.51 (1.2-3.4) K/uL Woodson # (Auto) 0.87 H (0.11-0.59) K/uL Eos # (Auto) 0.21 (0-0.5) K/uL Baso # (Auto) 0.01 (0-0.2) K/uL Immature Gran # (Auto) 0.02 (0.00-0.02) K/uL Sodium (136-145) mmol/L Potassium (3.5-5.1) mmol/L Chloride (98-107) mmol/L Carbon Dioxide (21-32) mmol/L Anion Gap (3-11) BUN (6-23) mg/dl Creatinine (0.6-1.2) mg/dl Est Cr Clr Drug Dosing Est GFR ( Amer) ml/min Est GFR (Non-Af Amer) ml/min BUN/Creatinine Ratio (10-20) Glucose (70-99(Fasting)) mg/dl Calcium (8.5-10.1) mg/dl Total Bilirubin (0.2-1.0) mg/dl AST (13-39) U/L ALT (7-52) U/L Alkaline Phosphatase (34-104) U/L Total Protein (6.0-8.3) gm/dl Albumin (3.4-5.0) gm/dl Globulin (2.5-4.0) gm/dl Albumin/Globulin Ratio (0.9-2) TSH 1.742 (0.300-4.500) uIu/ml HCG, Qual (Negative) Urine Color Yellow Urine Appearance Clear (Clear) Urine pH 7.5 (4.5-7.5) Ur Specific [place] 1.020 (1.000-1.030) Urine Protein 1+ H (Negative) Urine Glucose (UA) Negative (Negative) Urine Ketones Trace H (Negative) Urine Blood 2+ H (Negative) Urine Nitrite Negative (Negative) Urine Bilirubin Negative (Negative) Urine Urobilinogen Negative (Negative) Ur Leukocyte Esterase Negative (Negative) Urine WBC (Auto) 1-5 (0-5) /hpf Urine RBC (Auto) 5-10 H (0-4) /hpf U Hyaline Cast (Auto) 10-30 H (0-5) /lpf U Epithel Cells (Auto) >30 H (0-5) /lpf Urine Bacteria (Auto) Negative (Negative) Ur Renal Epithelial Cell 0-5 (0-5) /lpf Salicylates (3.0-30) mg/dl Acetaminophen (10-30) ug/ml Ethyl Alcohol mg/dL (<10.0) mg/dl 06/07/21 06/07/21 06/07/21 Range/Units 14:09 14:09 14:11 WBC (4.8-10.8) K/uL RBC (4.2-5.4) M/uL Hgb (12.0-16.0) g/dL Hct (37-47) % MCV (80-100) fL MCH (25-34) pg MCHC (32-36) g/dL RDW Std Deviation (36.4-46.3) fL RDW Coeff of [place] (11.5-14.5) % Plt Count (130-400) K/uL MPV (7.4-10.4) fL Immature Gran % (Auto) % Neut % (Auto) % Lymph % (Auto) % Woodson % (Auto) % Eos % (Auto) % Baso % (Auto) % Neut # (Auto) (1.4-6.5) K/uL Lymph # (Auto) (1.2-3.4) K/uL Woodson # (Auto) (0.11-0.59) K/uL Eos # (Auto) (0-0.5) K/uL Baso # (Auto) (0-0.2) K/uL Immature Gran # (Auto) (0.00-0.02) K/uL Sodium 139 (136-145) mmol/L Potassium 3.7 (3.5-5.1) mmol/L Chloride 106 (98-107) mmol/L Carbon Dioxide 27 (21-32) mmol/L Anion Gap 6 (3-11) BUN 11 (6-23) mg/dl Creatinine 1.03 (0.6-1.2) mg/dl Est Cr Clr Drug Dosing Not Reportable Est GFR ( Amer) 88.1 ml/min Est GFR (Non-Af Amer) 76.0 ml/min BUN/Creatinine Ratio 10.7 (10-20) Glucose 106 H (70-99(Fasting)) mg/dl Calcium 9.4 (8.5-10.1) mg/dl Total Bilirubin 0.3 (0.2-1.0) mg/dl AST 25 (13-39) U/L ALT 18 (7-52) U/L Alkaline Phosphatase 56 (34-104) U/L Total Protein 7.3 (6.0-8.3) gm/dl Albumin 4.0 (3.4-5.0) gm/dl Globulin 3.3 (2.5-4.0) gm/dl Albumin/Globulin Ratio 1.2 (0.9-2) TSH (0.300-4.500) uIu/ml HCG, Qual Negative (Negative) Urine Color Urine Appearance (Clear) Urine pH (4.5-7.5) Ur Specific [place] (1.000-1.030) Urine Protein (Negative) Urine Glucose (UA) (Negative) Urine Ketones (Negative) Urine Blood (Negative) Urine Nitrite (Negative) Urine Bilirubin (Negative) Urine Urobilinogen (Negative) Ur Leukocyte Esterase (Negative) Urine WBC (Auto) (0-5) /hpf Urine RBC (Auto) (0-4) /hpf U Hyaline Cast (Auto) (0-5) /lpf U Epithel Cells (Auto) (0-5) /lpf Urine Bacteria (Auto) (Negative) Ur Renal Epithelial Cell (0-5) /lpf Salicylates < 3.0 L (3.0-30) mg/dl Acetaminophen < 3 L (10-30) ug/ml Ethyl Alcohol mg/dL (<10.0) mg/dl 06/07/21 Range/Units 14:11 WBC (4.8-10.8) K/uL RBC (4.2-5.4) M/uL Hgb (12.0-16.0) g/dL Hct (37-47) % MCV (80-100) fL MCH (25-34) pg MCHC (32-36) g/dL RDW Std Deviation (36.4-46.3) fL RDW Coeff of [place] (11.5-14.5) % Plt Count (130-400) K/uL MPV (7.4-10.4) fL Immature Gran % (Auto) % Neut % (Auto) % Lymph % (Auto) % Woodson % (Auto) % Eos % (Auto) % Baso % (Auto) % Neut # (Auto) (1.4-6.5) K/uL Lymph # (Auto) (1.2-3.4) K/uL Woodson # (Auto) (0.11-0.59) K/uL Eos # (Auto) (0-0.5) K/uL Baso # (Auto) (0-0.2) K/uL Immature Gran # (Auto) (0.00-0.02) K/uL Sodium (136-145) mmol/L Potassium (3.5-5.1) mmol/L Chloride (98-107) mmol/L Carbon Dioxide (21-32) mmol/L Anion Gap (3-11) BUN (6-23) mg/dl Creatinine (0.6-1.2) mg/dl Est Cr Clr Drug Dosing Est GFR ( Amer) ml/min Est GFR (Non-Af Amer) ml/min BUN/Creatinine Ratio (10-20) Glucose (70-99(Fasting)) mg/dl Calcium (8.5-10.1) mg/dl Total Bilirubin (0.2-1.0) mg/dl AST (13-39) U/L ALT (7-52) U/L Alkaline Phosphatase (34-104) U/L Total Protein (6.0-8.3) gm/dl Albumin (3.4-5.0) gm/dl Globulin (2.5-4.0) gm/dl Albumin/Globulin Ratio (0.9-2) TSH (0.300-4.500) uIu/ml HCG, Qual (Negative) Urine Color Urine Appearance (Clear) Urine pH (4.5-7.5) Ur Specific [place] (1.000-1.030) Urine Protein (Negative) Urine Glucose (UA) (Negative) Urine Ketones (Negative) Urine Blood (Negative) Urine Nitrite (Negative) Urine Bilirubin (Negative) Urine Urobilinogen (Negative) Ur Leukocyte Esterase (Negative) Urine WBC (Auto) (0-5) /hpf Urine RBC (Auto) (0-4) /hpf U Hyaline Cast (Auto) (0-5) /lpf U Epithel Cells (Auto) (0-5) /lpf Urine Bacteria (Auto) (Negative) Ur Renal Epithelial Cell (0-5) /lpf Salicylates (3.0-30) mg/dl Acetaminophen (10-30) ug/ml Ethyl Alcohol mg/dL < 10.0 (<10.0) mg/dl Imaging Data Radiologist's Impression: Chest X-Ray 06/07/21 14:00 XR chest 1V portable CLINICAL HISTORY: Altered mental status. COMPARISON STUDY: No previous studies for comparison. FINDINGS: Lung volumes are normal. Lungs are clear. There is no pneumothorax or pleural effusion. Cardiac size is normal. Mediastinal contours are normal. There is no evidence for pulmonary edema. IMPRESSION: No acute cardiopulmonary findings. ACT 112: Negative or not required by law. Electronically signed by: Biju Shaver M.D. 06/07/2021 3:[address] 06/07/21 14:00 CT SCAN OF THE BRAIN WITHOUT IV CONTRAST CLINICAL HISTORY: Change in mental status. COMPARISON STUDY: No priors. TECHNIQUE: Unenhanced axial CT scan of the brain is performed from the vertex to the skull base. A dose lowering technique was utilized adhering to the principles of ALARA. CT DOSE: 1547.15 mGy.cm FINDINGS: Brain parenchyma: The brain parenchyma is normal in appearance. There is no hemorrhage, mass effect, or evidence of acute territorial ischemia by CT criteria. Garcia-white matter differentiation is preserved. No extra-axial fluid collection is seen. Ventricles, sulci, cisterns: Normal in configuration. Intracranial vasculature: The visualized intracranial vasculature at the skull base is normal in appearance. Calvarium: Unremarkable. Sinuses and mastoids: The visualized paranasal sinuses are clear. The mastoid air cells are well pneumatized. Orbits: The bony orbits are grossly intact. IMPRESSION: No acute intracranial abnormality. ACT 112: Negative or not required by law. Electronically signed by: Shun Longoria M.D. 06/07/2021 3:28 PM Discharge Plan Visit Data Chief Complaint: Altered Mental Status Stated Complaint: illness ED Provider: Beck Lua Discharge Problem: Altered mental status, Confusion, Bipolar disorder, Anemia Forms Stand Alone Forms: My [employer] Prescriptions Prescriptions: No Action albuterol sulfate 90 mcg/actuation aero powdr breath act w/sensor 1 inh inhalation Q4H PRN (Reason: Congestion) RF: 0 naproxen 500 mg tablet 500 mg PO BID PRN (Reason: Pain) RF: 0 sertraline 50 mg tablet 100 mg PO DAILY RF: 0 (DME) Wrist Brace Misc See Rx Instructions .ROUTE .MEDSUPPLY Qty: 1 RF: 0 lamotrigine 100 mg Tablet 200 mg PO DAILY Qty: 60 RF: 0 Referrals Referrals: Compa Walker DO [Primary Care Provider] - Discharge Problem: Altered mental status Qualifiers: Altered mental status type: unspecified Qualified Code(s): R41.82 - Altered mental status, unspecified Bipolar disorder Qualifiers: Active/Remission status: remission status unspecified Qualified Code(s): F31.9 - Bipolar disorder, unspecified Anemia Qualifiers: Anemia type: unspecified type Qualified Code(s): D64.9 - Anemia, unspecified
[2021-06-07 14:22] LABS: Basophils # (auto) 0.01 K/uL (0-0.2); Basophils % (auto) 0.1 %; Eosinophils # (auto) 0.21 K/uL (0-0.5); Eosinophils % (auto) 2.3 %; Hematocrit (blood only) 32.4 % (37-47); Hemoglobin 9.8 g/dL (12.0-16.0); Immature Granulocytes # (auto) 0.02 K/uL (0.00-0.02); Immature Granulocytes % (auto) 0.2 %; Lymphocytes # (auto) 1.51 K/uL (1.2-3.4); Lymphocytes % (auto) 16.8 %; Mean Corpuscular Hemoglobin 21.8 pg (25-34); Mean Corpuscular Hgb Conc 30.2 g/dL (32-36); Mean Platelet Volume 10.5 fL (7.4-10.4); Monocytes # (auto) 0.87 K/uL (0.11-0.59); Monocytes % (auto) 9.7 %; Neutrophils # (auto) 6.37 K/uL (1.4-6.5); Neutrophils % (auto) 70.9 %; Platelet Count 280 K/uL (130-400); RDW Coefficient of Variation 14.7 % (11.5-14.5); RDW Standard Deviation 38.4 fL (36.4-46.3); White Blood Count 8.99 K/uL (4.8-10.8)
[2021-06-07 14:40] LABS: Alanine Aminotransferase 18 U/L (7-52); Albumin Globulin Ratio 1.2 (0.9-2); Alkaline Phosphatase 56 U/L (34-104); Anion Gap 6 (3-11); Aspartate Aminotransferase 25 U/L (13-39); BUN Creatinine Ratio 10.7 (10-20); Bilirubin,Total 0.3 mg/dl (0.2-1.0); Blood Urea Nitrogen 11 mg/dl (6-23); Calcium 9.4 mg/dl (8.5-10.1); Carbon Dioxide 27 mmol/L (21-32); Chloride 106 mmol/L (98-107); Est GFR (African American) 88.1 ml/min; Globulin 3.3 gm/dl (2.5-4.0); Glucose 106 mg/dl (70-99(Fasting)); Potassium 3.7 mmol/L (3.5-5.1); Sodium 139 mmol/L (136-145); Total Protein 7.3 gm/dl (6.0-8.3)
[2021-06-07 14:43] LABS: Acetaminophen < 3 ug/ml (10-30); Salicylate < 3.0 mg/dl (3.0-30)
[2021-06-07 14:46] LABS: Pregnancy Test, Serum Negative (Negative)
[2021-06-07 15:18] LABS: Appearance Urine Clear (Clear); Bacteria Urine Automated Negative (Negative); Bilirubin Urine Negative (Negative); Blood Urine 2+ (Negative); Color Urine Yellow; Epithelial Cell Urine Auto >30 /lpf (0-5); Glucose Urine UA Negative (Negative); Ketones Urine Trace (Negative); Leukocyte Esterase Urine Negative (Negative); Nitrite Urine Negative (Negative); Urobilinogen Urine Negative (Negative); pH Urine 7.5 (4.5-7.5)
--- NOTE | 2021-06-07 15:19 | XRay Report ---
XR chest 1V portable CLINICAL HISTORY: Altered mental status. COMPARISON STUDY: No previous studies for comparison. FINDINGS: Lung volumes are normal. Lungs are clear. There is no pneumothorax or pleural effusion. Car diac size is normal. Mediastinal contours are normal. There is no evidence for pulmonary edema. IMPRESSION: No acute cardiopulmonary findings. ACT 112: Negative or not required by law. Electronically signed by: Biju Shaver M.D. 06/07/2021 3:17 PM
[2021-06-07 15:21] LABS: Protein Urine 1+ (Negative)
--- NOTE | 2021-06-07 15:29 | CT Scan Report ---
CT SCAN OF THE BRAIN WITHOUT IV CONTRAST CLINICAL HISTORY: Change in mental status. COMPARISON STUDY: No priors. TECHNIQUE: Unenhanced axial CT scan of the brain is performed from the vertex to the skull base. A d ose lowering technique was utilized adhering to the principles of ALARA. CT DOSE: 1547.15 mGy.cm FINDINGS: Brain parenchyma: The brain parenchyma is normal in appearance. There is no hemorrhage, mass effect, or evidence of acute territorial ischemia by CT criteria. Garcia-white matter differentiation is preser júnior. No extra-axial fluid collection is seen. Ventricles, sulci, cisterns: Normal in configuration. Intracranial vasculature: The visualized intracranial vasculature at the skull base is normal in appe arance. Calvarium: Unremarkable. Sinuses and mastoids: The visualized paranasal sinuses are clear. The mastoid air cells are well pneu matized. Orbits: The bony orbits are grossly intact. IMPRESSION: No acute intracranial abnormality. ACT 112: Negative or not required by law. Electronically signed by: Shun Longoria M.D. 06/07/2021 3:28 PM
[2021-06-07 15:32] LABS: Renal Epithelial Cells Urine 0-5 /lpf (0-5)
[2021-06-07] MEDS ORDERED: SODIUM CHLORIDE 0.9% 1000ML 2,000 ML IV ONE (15:53)
[2021-06-07 16:22] LABS: Amphetamines+Metham, Urine Neg (Neg); Barbiturates, Urine Neg (Neg); Benzodiazepine, Urine Neg (Neg); Cocaine, Urine Neg (Neg); MDMA (Ecstacy), Urine Pos (Neg); Methadone, Urine Neg (Neg); Opiate, Urine Neg (Neg); Phencyclidine, Urine Neg (Neg)
--- NOTE | 2021-06-07 16:28 | History & Physical Report ---
Date of Service June 07, 2021 Assessment & Plan (1) Delirium: Plan: -Suspected metabolic encephalopathy 2/2 drug ingestion. UDS positive for MDMA, all else negative. CBC and UA unremarkable, patient is afebrile making infection unlikely. BMP unremarkable, without anion gap or hyponatremia. Head CT unremarkable for an acute process, making CARDIOVASCULAR OR NURSE pathology cause less likely. Patient did not report any recent head trauma, there is no evidence of this on physical exam. Patient's VS stable, not hypoxic or hypotensive. No hypoglycemia. Patient's H/H is stable. -VBG and INR pending. -patient received a 2L NS bolus in ED; will continue with LR's @ 150cc/hr. -Patient is currently sedated and resting comfortably in room. Will continue sedation with Ativan 0.5mg now and 0.5 mg Q4 PRN. -Haldol 5 mg Q6 PRN for agitation not managed with Ativan as ordered above. -Psych consulted given extensive psychiatric history. (2) Bipolar disorder: Plan: -Continue Lamictal 200 mg daily. -Lamictal level ordered, pending. (3) Depression: Plan: -Continue sertraline 100 mg daily. (4) Asthma: Plan: -Continue albuterol inhaler PRN. (5) DVT prophylaxis: Plan: -SCDs ordered History of Present Illness Chief Complaint: Acute delirium Primary Care Provider: Compa Walker DO Patient is a 26-year-old female medical history of bipolar disorder and depression with previous suicide attempt, as well as asthma who was brought in by EMS as she was found in the hallway of a building thrashing around on the floor. EMS reported that they gave her benzos prior to arrival and this improved. she was not having a seizure and she was intermittently talking. Upon initial eval, ED staff reports "she was intermittently thrashing about in the stretcher and then will lay back and will intermittently be talking. She had some pressured speech and is very intermittently and easily agitated. She denied any suicidal or homicidal ideations.She denied any headache or change in vision. No chest pain or shortness of breath. No nausea, vomiting or diarrhea. She is here for school initially from outside the [place]. She smokes marijuana but denies all other drugs and alcohol". Patient was sedated during my initial exam, however upon re-examination she was more awake and disoriented. She is not able to provide a reliable history. 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 UDS positive for MDMA, all else negative. VSS, WNL. CBC unremarkable. BMP unremarkable, without anion gap or hyponatremia. UA unremarkable. Head CT unremarkable for an acute process. VBG and INR pending. Allergies Allergy/AdvReac Type Severity Reaction Status Date / Time No Known Allergies Allergy Verified 06/07/21 15:48 Home Medications Medication Instructions Recorded Confirmed Type albuterol sulfate 90 mcg/actuation 1 inh INHALATION Q4H PRN 06/15/20 11/09/20 History breath activated powder inhaler,sensor arm brace (Wrist Brace) #1 ea 06/15/20 11/09/20 Rx naproxen 500 mg tablet 500 mg PO BID PRN 06/15/20 11/09/20 History sertraline 50 mg tablet 100 mg PO DAILY 06/15/20 11/09/20 History lamotrigine 100 mg tablet 200 mg PO DAILY #60 tab 08/17/20 11/09/20 Rx lamotrigine 100 mg tablet 200 mg PO DAILY 30 Days #60 tab 06/09/21 Rx sertraline 100 mg tablet 100 mg PO DAILY 30 Days #30 tab 06/09/21 Rx Past Med/Surg History Medical History Asthma Bipolar disorder Pain of right patellofemoral joint Suicidal ideation Surgical History History of wisdom tooth extraction Family History Father Hypertension Mother Hypertension Grandfather (Maternal) Glaucoma Grandmother (Maternal) Diabetes Brother Diabetes Aunt Fibroids Denies family history of Ovarian cancer Prostate cancer Myocardial infarction Breast cancer Colorectal cancer Stroke Social History Smoking Status: Unknown if ever smoked Tobacco Type: Cigarettes Cigarettes Per Day: 2; Second Hand Exposure: No; Preferred Language: Icelandic Communication Ability: Effective Visual Impairment: No Limitations Hearing Ability: Normal 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 Beliefs That Will Affect Care: None marital status: Single Current Living Situation: Other current occupational status: student How many Children do You have: 0 Feels Safe at Home: Yes Childhood Exposure to Second-Hand Smoke: No caffeine: Yes Dental Care, Regularly: No Physical Activity Frequency: 1-2 Times per Week Seatbelt Use: always Sunscreen Use: Yes Assistive Devices: None Review of Systems Review of Systems: Unobtainable due to cognitive status Physical Exam Physical Exam: General: Pt is drowsy and confused but slowly becoming more awake; received 2 mg Ativan via EMS on arrival around 1400. 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 Neuro: Strength intact bilaterally and rated 5/5, no motor deficits, speech is clear, no peripheral sensory deficits Skin: no rash or erythema Results & Data Results & Data ([facility]) Vital Signs (Past 12 Hours) Vital Signs Temp Pulse Resp BP Pulse Ox 06/07/21 15:08 97 06/07/21 15:00 37.2 C 120 H 20 128/73 97 Laboratory Results Abnormal lab results 06/07/21 06/07/21 06/07/21 Range/Units 14:07 14:07 14:09 Hgb 9.8 L (12.0-16.0) g/dL Hct 32.4 L (37-47) % MCV 72.0 L (80-100) fL MCH 21.8 L (25-34) pg MCHC 30.2 L (32-36) g/dL RDW Coeff of [place] 14.7 H (11.5-14.5) % MPV 10.5 H (7.4-10.4) fL [place] # (Auto) 0.87 H (0.11-0.59) K/uL Glucose (70-99(Fasting)) mg/dl Urine Protein 1+ H (Negative) Urine Ketones Trace H (Negative) Urine Blood 2+ H (Negative) Urine RBC (Auto) 5-10 H (0-4) /hpf U Hyaline Cast (Auto) 10-30 H (0-5) /lpf U Epithel Cells (Auto) >30 H (0-5) /lpf Salicylates (3.0-30) mg/dl Acetaminophen (10-30) ug/ml MDMA (Ecstasy) Screen Pos H (Neg) 06/07/21 06/07/21 Range/Units 14:09 14:11 Hgb (12.0-16.0) g/dL Hct (37-47) % MCV (80-100) fL MCH (25-34) pg MCHC (32-36) g/dL RDW Coeff of [place] (11.5-14.5) % MPV (7.4-10.4) fL [place] # (Auto) (0.11-0.59) K/uL Glucose 106 H (70-99(Fasting)) mg/dl Urine Protein (Negative) Urine Ketones (Negative) Urine Blood (Negative) Urine RBC (Auto) (0-4) /hpf U Hyaline Cast (Auto) (0-5) /lpf U Epithel Cells (Auto) (0-5) /lpf Salicylates < 3.0 L (3.0-30) mg/dl Acetaminophen < 3 L (10-30) ug/ml MDMA (Ecstasy) Screen (Neg) Diagnostic Findings Chest X-Ray 06/07/21 14:00 XR chest 1V portable CLINICAL HISTORY: Altered mental status. COMPARISON STUDY: No previous studies for comparison. FINDINGS: Lung volumes are normal. Lungs are clear. There is no pneumothorax or pleural effusion. Cardiac size is normal. Mediastinal contours are normal. There is no evidence for pulmonary edema. IMPRESSION: No acute cardiopulmonary findings. ACT 112: Negative or not required by law. Electronically signed by: Biju Shaver M.D. 06/07/2021 3:[address] 06/07/21 14:00 CT SCAN OF THE BRAIN WITHOUT IV CONTRAST CLINICAL HISTORY: Change in mental status. COMPARISON STUDY: No priors. TECHNIQUE: Unenhanced axial CT scan of the brain is performed from the vertex to the skull base. A dose lowering technique was utilized adhering to the principles of ALARA. CT DOSE: 1547.15 mGy.cm FINDINGS: Brain parenchyma: The brain parenchyma is normal in appearance. There is no hemorrhage, mass effect, or evidence of acute territorial ischemia by CT criteria. Garcia-white matter differentiation is preserved. No extra-axial fluid collection is seen. Ventricles, sulci, cisterns: Normal in configuration. Intracranial vasculature: The visualized intracranial vasculature at the skull base is normal in appearance. Calvarium: Unremarkable. Sinuses and mastoids: The visualized paranasal sinuses are clear. The mastoid air cells are well pneumatized. Orbits: The bony orbits are grossly intact. IMPRESSION: No acute intracranial abnormality. Medications Administered Sodium Chloride (Nss 1000ml) 2,000 mls @ 999 mls/hr IV .Q2H1M ONE Stop: 06/07/21 17:53 Last Admin: 06/07/21 16:42 Dose: Not Given Documented by: [id number] Lactated Ringer's (Lr) 1,000 mls @ 150 mls/hr IV .Q6H40M CONNIE Stop: 07/07/21 16:34 Last Admin: 06/07/21 16:49 Dose: 150 mls/hr Documented by: [id number] ECG Additional Comments: Normal sinus rhythm ST elevation, consider early repolarization, pericarditis, or injury Abnormal ECG No previous ECGs available Code Status & VTE Plan Code Status Full Code Supervising Physician Co-Signing Physician Notes Patient seen and examined at bedside. Obtained a history and physical examination during face to face encounter. Discussed plan of care with [facility] and patient. Reviewed above note and agree with it. Patient will be admitted with acute delirium likely secondary to drug use. Will admit and monitor. Continue IVF and continue supportive care PG Care Time/CCT Total # of Minutes Spent Total Time Spent with Patient: Total time spent is greater than 50% in coordination of care (as documented) at patient's floor/unit and/or counseling patient: Coding Level of Care Code 58683 Initial Inpt Care Lvl 2 Diagnoses Delirium R41.0 Bipolar disorder F31.9 Active/Remission status: remission status unspecified Asthma J45.909 Depression F32.A DVT prophylaxis Z29.9 (1) Bipolar disorder Active/Remission status: remission status unspecified Qualified Code(s): F31.9 - Bipolar disorder, unspecified
[2021-06-07] MEDS: LACTATED RINGER'S 1,000 ML IV SCH ×2 (16:49→22:44)
[2021-06-07 17:37] LABS: Base Excess VBG 2.2 mEq/L; Oxygen Saturation VBG 78.8 %; pH VBG 7.38 (7.36-7.41)
[2021-06-07] MEDS ORDERED: LORazepam 2 MG/ML VIAL (IM USE) IM PRN (17:37)
[2021-06-07 17:38] LABS: Prothrombin Time 10.6 Seconds (9.0-12.0)
[2021-06-07] MEDS ORDERED: HALOPERIDOL LACTATE 5 MG/ML 1 ML VIAL IM PRN (17:48)
[2021-06-07] MEDS ORDERED: ONDANSETRON INJ 2 MG/ML 2 ML VIAL IV PRN (22:35)
[2021-06-07] MEDS ORDERED: ALBUTEROL HFA 8 GM INHALER INH PRN (23:04)
[2021-06-08] MEDS ORDERED: HALOPERIDOL LACTATE 5 MG/ML 1 ML VIAL IM PRN (00:19)
[2021-06-08] MEDS: LACTATED RINGER'S 1,000 ML IV SCH ×3 (05:32→19:38)
[2021-06-08] MEDS: lamoTRIgine 100 MG TAB PO SCH (08:59)
[2021-06-08] MEDS: SERTRALINE HCL 100 MG TABLET PO SCH (08:59)
[2021-06-08 09:27] LABS: Basophils # (auto) 0.01 K/uL (0-0.2); Basophils % (auto) 0.1 %; Eosinophils # (auto) 0.17 K/uL (0-0.5); Eosinophils % (auto) 2.2 %; Hematocrit (blood only) 29.4 % (37-47); Hemoglobin 8.9 g/dL (12.0-16.0); Immature Granulocytes # (auto) 0.01 K/uL (0.00-0.02); Immature Granulocytes % (auto) 0.1 %; Lymphocytes # (auto) 1.49 K/uL (1.2-3.4); Lymphocytes % (auto) 19.1 %; Mean Corpuscular Hemoglobin 21.9 pg (25-34); Mean Corpuscular Hgb Conc 30.3 g/dL (32-36); Mean Corpuscular Volume 72.4 fL (80-100); Mean Platelet Volume 9.8 fL (7.4-10.4); Monocytes # (auto) 0.76 K/uL (0.11-0.59); Monocytes % (auto) 9.7 %; Neutrophils # (auto) 5.37 K/uL (1.4-6.5); Neutrophils % (auto) 68.8 %; Platelet Count 240 K/uL (130-400); RDW Coefficient of Variation 14.9 % (11.5-14.5); RDW Standard Deviation 39.5 fL (36.4-46.3); Red Blood Count 4.06 M/uL (4.2-5.4); White Blood Count 7.81 K/uL (4.8-10.8)
[2021-06-08 09:52] LABS: Troponin I < 0.03 ng/ml (0-0.04)
[2021-06-08 09:53] LABS: Alanine Aminotransferase 21 U/L (7-52); Albumin Globulin Ratio 1.2 (0.9-2); Albumin Level 3.5 gm/dl (3.4-5.0); Alkaline Phosphatase 51 U/L (34-104); Anion Gap 6 (3-11); Aspartate Aminotransferase 82 U/L (13-39); BUN Creatinine Ratio 10.8 (10-20); Bilirubin,Total 0.5 mg/dl (0.2-1.0); Blood Urea Nitrogen 10 mg/dl (6-23); Calcium 8.7 mg/dl (8.5-10.1); Carbon Dioxide 25 mmol/L (21-32); Chloride 106 mmol/L (98-107); Est GFR (African American) 99.7 ml/min; Glucose 79 mg/dl (70-99(Fasting)); Magnesium 1.9 mg/dl (1.7-2.4); Potassium 3.9 mmol/L (3.5-5.1); Sodium 137 mmol/L (136-145); Total Protein 6.5 gm/dl (6.0-8.3)
[2021-06-08 10:01] LABS: Hypochromasia Present; Microcytosis Present
--- NOTE | 2021-06-08 11:54 | Psychiatric Consultation ---
Date of Consultation June 08, 2021 Impression / Recommendations Impression 26 yo woman with a history of BPAD admitted after bizarre behavior and confusion concerning for acute encephalopathy. Diagnostically unclear but suspect possible hypomania due to recent increase in sertraline and Wellbutrin XL versus encephalopathy from accidental misuse/overuse of gabapentin versus medication reaction from polypharmacy versus confusion in setting of rapid dose reduction in gabapentin (sounds like she possibly went from 600mg TID to 900mg daily?). Serotonin syndrome possible but less likely given no significant vital sign abnormalities and no clear description of clonus. Substance-induced unlikely as she denies all use and UDS was likely false positive as Wellbutrin can often cause positive MDMA result on toxicology screen. Certainly still possible for other medical cause though workup so far has been reassuring. Wellbutrin can lower seizure threshold but sounds like no clear evidence for epileptic event. Awaiting outpatient records from [facility] to verify her most up to date medications and any recent changes which may have contributed to presentation. Encouragingly she now presents with stable mood, no evidence for acute elliott nor major mood episode and improvement mental status. It is possible that haldol last night helped treat a potential emerging episode of hypomania/elliott so discussed with Tereza elliott symptoms to be aware of moving forward and need to talk with her psychiatrist or seek mental health treatment should this occur which she agrees to do. She currently declines inpatient psychiatric treatment and denies SI, denies HI and shows ability to care for her basic needs and therefore does not meet criteria for involuntary treatment. She is agreeable to discontinuing gabapentin and Wellbutrin given concern that these may have contributed to her confusion yesterday; if confusion was in the setting of rapid self-taper it is improving so will continue to hold gabapentin. Continue with lamictal and sertraline at current dosages. -Continue lamictal 200mg qd and sertraline 100mg qd -In future may need to consider addition of an additional mood stabilizer as an outpatient such as [place] or antipsychotic especially if high doses of antidepressant medications are used -Would avoid future use of gabapentin -Awaiting records from [facility] -Will ensure she has follow-up appointments scheduled with [facility] after discharge (1) Altered mental status: Altered mental status type: unspecified Qualified Code(s): R41.82 - Altered mental status, unspecified (2) Bipolar disorder: Active/Remission status: remission status unspecified Qualified Code(s): F31.9 - Bipolar disorder, unspecified see impression Risk Factors Assessment Do You Have Access To A Gun?: No Hopelessness: No Psych History Identifying Data 26 yo woman with a history of BPAD who was admitted medically for delirium. Psychiatry was consulted for recommendations. Chief Complaint "I saw my psychiatrist on Friday and they increased that medication to 900 but I wasn't sure if that meant to take it three times per day or nine times per day". History of Present Illness Tereza was brought to the ED yesterday and admitted due to concern for delirium after being found at her apartment moving about erratically on the floor and presenting as confused and with psychomotor agitation concerning for possible overdose or seizure. Admission labs were largely unremarkable with exception of UDS positive for MDMA. She recieved haldol 5mg and ativan 0.5 mg yesterday evening on arrival to the ED. Today Tereza presents as cooperative, pleasant and calm. She is fully oriented and recalls some of the events leading to her hospitalization yesterday but not much "I was acting like the girl in the exorcist". 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 After that she has no recollection of events. She recalls crane man bringing her to the hospital but no other details. She denies any history of symptoms like this in the past. Denies any hx psychosis except some paranoia and possible hallucination in class last week after she forgot to take her medication. She endorses anxiety with racing thoughts. Endorses periods of depressed mood with current PHQ-9 score of 7 with 0 for q9. Adamantly denies SI and denies taking anything as accidental nor intentional overdose. She endorses a history of elliott and this was also noted during her psychiatric admission to [facility] in August 2020 for depression and SI. She denies any history of binging or purging. In reviewing possible recent symptoms for elliott she endorses not sleeping as much (~5-6 hrs per night) and waking up early to get school work done but has then felt tired and napped on most days in the afternoon and falls asleep at night. She notes her friends thought she was talking faster and was "being confusing" a few days ago and she had increased irritability but otherwise denies increase in psychomotor activity, grandiosity, elevated mood, increase in risk taking behaviors nor psychotic symptoms. Reviewed any recent changes to her health or new stressors and she describes graduate school as being busy and contributing to stress but with no significant changes recently. Per review of recent medication scripts and her recollection her Wellbutrin was recently increased to 300mg, sertraline to 200mg, lamictal to 400mg, and gabapentin was possibly increased on 06/05/21 to 900mg TID though she reports having a lot of confusion regarding how she was supposed to take the increased gabapentin. She states she forgot to take her medications on 06/06/21 until the late afternoon and then was only taking the gabapentin once daily due to her concern about how much she was supposed to be taking after the recent dose adjustment. She doesn't know why she was prescribed gabapentin but denies any history of seizures nor concussions. See psychiatric liason note for further information. Past Psychiatric History Current Psychiatric Diagnosis: BPAD Outpatient Services: [facility] for individual therapy, weekly group therapy and psychiatry services Previous Psych Admissions: [facility] August 2020 for depression Do You Have Access To A Gun?: No History of Previous Suicide Attempt: Yes (once in August 2020 prior to admission at [facility]) Past Medication Trials: sertraline 100mg was started in college and then lamictal, Wellbutrin and gabapentin were added over the last year Allergies Allergy/AdvReac Type Severity Reaction Status Date / Time No Known Allergies Allergy Verified 06/07/21 15:48 Home Medications Medication Instructions Recorded Confirmed Type albuterol sulfate 90 mcg/actuation 1 inh INHALATION Q4H PRN 06/15/20 11/09/20 History breath activated powder inhaler,sensor arm brace (Wrist Brace) #1 ea 06/15/20 11/09/20 Rx naproxen 500 mg tablet 500 mg PO BID PRN 06/15/20 11/09/20 History sertraline 50 mg tablet 100 mg PO DAILY 06/15/20 11/09/20 History lamotrigine 100 mg tablet 200 mg PO DAILY #60 tab 08/17/20 11/09/20 Rx Family History Denies any fam psych hx Substance Abuse History Drinks wine 1 glass every 2 weeks, denies any marijuana use in the last 2 years. 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[employer]) Marital Status: Single Beliefs That Will Affect Care: None History of Legal Problems: denies Patient History Medical History Asthma Bipolar disorder Pain of right patellofemoral joint Suicidal ideation Surgical History History of wisdom tooth extraction Family History Father Hypertension Mother Hypertension Grandfather (Maternal) Glaucoma Grandmother (Maternal) Diabetes Brother Diabetes Aunt Fibroids Denies family history of Ovarian cancer Prostate cancer Myocardial infarction Breast cancer Colorectal cancer Stroke Social History Smoking Status: Unknown if ever smoked Tobacco Type: Cigarettes Cigarettes Per Day: 2; Second Hand Exposure: No; Preferred Language: Telugu Communication Ability: Effective Communication Ability Comment: unable to obtain Visual Impairment: No Limitations Hearing Ability: Normal Clinical Administrative Coordinator Required: No Beliefs That Will Affect Care: None marital status: Single Current Living Situation: Other current occupational status: student How many Children do You have: 0 Feels Safe at Home: Yes Childhood Exposure to Second-Hand Smoke: No caffeine: Yes Dental Care, Regularly: No Physical Activity Frequency: 1-2 Times per Week Seatbelt Use: always Sunscreen Use: Yes Assistive Devices: None Physical Exam Psychiatric: Orientation: alert and oriented x 3 Apperance: appropriately dressed and appropriately groomed Eye Contact: good eye contact Motor Behavior: no abnormal motor movements Speech: normal rate/rhythm/volume of speech Affect: euthymic affect Mood: + anxious mood Thought Process: goal directed thought process Thought Content: reality based without delusions Suicidal Thoughts: denies suicidal thoughts Homicidal Thoughts: denies homicidal thoughts Hallucinations: no auditory hallucinations and no visual hallucinations Cognition: remote memory grossly intact, attention grossly intact and language grossly intact; + recent memory not intact Estimated Intelligence: consistent with education level Insight: + impaired insight Judgement: + fair judgement Vital Signs (Past 24 Hours): Last Vital Signs Temp 36.7 C 06/08/21 08:03 Pulse 78 06/08/21 08:03 Resp 12 06/08/21 08:03 BP 115/73 06/08/21 08:03 Pulse Ox 97 06/08/21 08:03 Review of Systems All systems reviewed & are unremarkable except as noted in HPI & below Results & Data ([facility]) Laboratory Results Reviewed labwork, AST elevated today, TSH nml, UDS positive for MDMA. <3 L for acetaminophen. Diagnostic Findings EKG QTc 427 ms Medications Administered Lactated Ringer's (Lr) 1,000 mls @ 150 mls/hr IV .Q6H40M CONNIE Stop: 07/07/21 16:34 Last Admin: 06/08/21 05:32 Dose: 150 mls/hr Documented by: [id number] Infusion: 06/08/21 05:25 Dose: 150 mls/hr Documented by: [id number] Admin: 06/07/21 22:44 Dose: 150 mls/hr Documented by: [id number] Infusion: 06/07/21 22:44 Dose: 150 mls/hr Documented by: [id number] Admin: 06/07/21 16:49 Dose: 150 mls/hr Documented by: [id number] Lamotrigine (Lamotrigine 100 Mg Tab) 200 mg PO DAILY [facility] Stop: 07/08/21 08:59 Last Admin: 06/08/21 08:59 Dose: 200 mg Documented by: [id number] Sertraline HCl (Sertraline Hcl 100 Mg Tablet) 100 mg PO DAILY CONNIE Stop: 07/08/21 08:59 Last Admin: 06/08/21 08:59 Dose: 100 mg Documented by: [id number] Coding Level of Care Code 65691 Inpt Consult Level 4 Diagnoses Altered mental status R41.82 Altered mental status type: unspecified Bipolar disorder F31.9 Active/Remission status: remission status unspecified
--- NOTE | 2021-06-08 13:59 | Electrocardiogram Report ---
Test Reason : Blood Pressure : / mmHG Vent. Rate : 088 BPM Atrial Rate : 088 BPM P-R Int : 158 ms QRS Dur : 078 ms QT Int : 356 ms P-R-T Axes : 057 070 066 degrees QTc Int : 430 ms Normal sinus rhythm Early repolarization Abnormal ECG No previous ECGs available Confirmed by Derick Ibanez ([id number]) on 06/08/2021 1:58:54 PM Referred By: REFERRED SELF Confirmed By:Deon Ibanez
--- NOTE | 2021-06-08 14:08 | Electrocardiogram Report ---
Test Reason : Blood Pressure : / mmHG Vent. Rate : 084 BPM Atrial Rate : 084 BPM P-R Int : 158 ms QRS Dur : 088 ms QT Int : 362 ms P-R-T Axes : 046 074 067 degrees QTc Int : 427 ms Normal sinus rhythm Normal ECG When compared with ECG of 07-JUN-2021 16:07, (unconfirmed) No significant change was found Confirmed by Derick Ibanez ([id number]) on 06/08/2021 2:07:43 PM Referred By: REFERRED SELF Confirmed By:Deon Ibanez
[2021-06-08] MEDS ORDERED: BACITRACIN OINT 15 GM TUBE EXT PRN (18:09)
--- NOTE | 2021-06-08 19:29 | Hospitalist Progress Note ---
Date of Service June 08, 2021 Assessment & Plan (1) Delirium: Plan: Presented with significant agitation and confusion Suspect toxic encephalopathy 2/2 polypharmacy from psychiatric medications. UDS positive for MDMA which is likely from her Wellbutrin use-all else negative. CBC and UA unremarkable, patient is afebrile making infection unlikely. BMP unremarkable, without anion gap or hyponatremia. Head CT unremarkable for an acute process, making DEBURRER MACHINE pathology cause less likely. Patient did not report any recent head trauma, there is no evidence of this on physical exam. Patient's VS stable, not hypoxic or hypotensive. No hypoglycemia. Patient's H/H is stable. -VBG and INR normal ECG with early repolarization, troponin negative -patient received volume resuscitation, Ativan, and IM Haldol on arrival Her mental status lately back to normal at this point Seen by psychiatry-thinks either hypomania versus delirium from polypharmacy-she was on high doses of Lamictal 400 mg daily, Wellbutrin XL 300 mg daily, sertraline, and high doses of gabapentin-since 2 of these medications were recently increased -Discontinued Wellbutrin and gabapentin -Lower dose of Lamictal to 200 mg daily Continue-sertraline 100 mg daily -Okay to discontinue IV fluids this evening -Continue to follow clinically as Haldol from last night wears off and make sure that she does not have recurrence of agitation -Follow-up with outpatient psychiatry after discharge (2) Bipolar disorder: Plan: -Continue Lamictal 200 mg daily. -Lamictal level ordered, pending. (3) Depression: Plan: -Continue sertraline 100 mg daily. (4) Asthma: Plan: -Continue albuterol inhaler PRN. (5) Anemia: Plan: Has a history of chronic microcytic anemia Hemoglobin down 8.9, some of this may be hemodilution She reports long history of anemia and multiple family members with anemia. She denies knowing if she has sickle cell trait or thalassemia She does have significant menorrhagia Suspect some thalassemia as well as iron deficiency anemia from menorrhagia -Check iron studies in the morning Follow CBC -Likely needs to start ferrous sulfate 325 mg p.o. twice daily Follow-up as an outpatient She declines any hormonal methods to reduce her menorrhagia (6) DVT prophylaxis: Plan: -SCDs Disposition-continued stay, but likely discharged home tomorrow if remains stable Admission and Anticipated Discharge Date Admission Date: June 07, 2021 Subjective Patient feeling better today, is eating and drinking, no abdominal pain or nausea. She does recall having "exorcist episode" yesterday. Wants to know why this happened. I discussed her care with the psychiatrist. As for her anemia, she has menorrhagia for many years and cannot tolerate hormonal control methods. She also reports that she has had anemia her whole life as do multiple family members, but hemoglobin is never this low. Review of Systems Review of Systems: All systems reviewed & are unremarkable except as noted in HPI & below Physical Exam Constitutional: WD/WN, vitals as above Eyes: PERRL, conjunctivae normal, anicteric sclerae ENMT: external ear and nose normal, oropharynx normal Neck: trachea midline, no thyromegaly Respiratory: normal respiratory effort, lungs clear to auscultation Cardiovascular: RRR, no murmur, no edema Chest (Breasts): Chest: normal inspection of chest Gastrointestinal (Abdomen): normal bowel sounds, soft, nontender, no hepatosp lenomegaly Musculoskeletal: Extremities: extremities normal to inspection; no cyanosis and no clubbing Skin: no rashes, warm and dry Neurologic: moves all extremities and awake; no focal motor deficits Psychiatric: A+Ox3, euthymic affect Lymphatic: no lymphedema Results & Data Results & Data ([facility]) Vital Signs (Past 12 Hours) Vital Signs Temp Pulse Resp BP Pulse Ox 06/08/21 15:31 37.1 C 98 H 12 97/56 L 97 06/08/21 08:03 36.7 C 78 12 115/73 97 Laboratory Results 06/08/21 06/08/21 Range/Units 09:09 09:09 WBC 7.81 (4.8-10.8) K/uL RBC 4.06 L (4.2-5.4) M/uL Hgb 8.9 L (12.0-16.0) g/dL Hct 29.4 L (37-47) % MCV 72.4 L (80-100) fL MCH 21.9 L (25-34) pg MCHC 30.3 L (32-36) g/dL RDW Std Deviation 39.5 (36.4-46.3) fL RDW Coeff of [place] 14.9 H (11.5-14.5) % Plt Count 240 (130-400) K/uL MPV 9.8 (7.4-10.4) fL Immature Gran % (Auto) 0.1 % Neut % (Auto) 68.8 % Lymph % (Auto) 19.1 % [place] % (Auto) 9.7 % Eos % (Auto) 2.2 % Baso % (Auto) 0.1 % Neut # (Auto) 5.37 (1.4-6.5) K/uL Lymph # (Auto) 1.49 (1.2-3.4) K/uL [place] # (Auto) 0.76 H (0.11-0.59) K/uL Eos # (Auto) 0.17 (0-0.5) K/uL Baso # (Auto) 0.01 (0-0.2) K/uL Immature Gran # (Auto) 0.01 (0.00-0.02) K/uL Hypochromasia Present Microcytosis Present Sodium 137 (136-145) mmol/L Potassium 3.9 (3.5-5.1) mmol/L Chloride 106 (98-107) mmol/L Carbon Dioxide 25 (21-32) mmol/L Anion Gap 6 (3-11) BUN 10 (6-23) mg/dl Creatinine 0.93 (0.6-1.2) mg/dl Est Cr Clr Drug Dosing 104.0 ml/min Est GFR ( Amer) 99.7 ml/min Est GFR (Non-Af Amer) 86.0 ml/min BUN/Creatinine Ratio 10.8 (10-20) Glucose 79 (70-99(Fasting)) mg/dl Calcium 8.7 (8.5-10.1) mg/dl Magnesium 1.9 (1.7-2.4) mg/dl Total Bilirubin 0.5 (0.2-1.0) mg/dl AST 82 H (13-39) U/L ALT 21 (7-52) U/L Alkaline Phosphatase 51 (34-104) U/L Troponin I < 0.03 (0-0.04) ng/ml Total Protein 6.5 (6.0-8.3) gm/dl Albumin 3.5 (3.4-5.0) gm/dl Globulin 3.0 (2.5-4.0) gm/dl Albumin/Globulin Ratio 1.2 (0.9-2) PG Care Time/CCT Total # of Minutes Spent Total Time Spent with Patient: Total time spent is greater than 50% in coordination of care (as documented) at patient's floor/unit and/or counseling patient: Coding Level of Care Code 75085 Subseq Hosp Care Lvl 2 Diagnoses Delirium R41.0 Bipolar disorder F31.9 Active/Remission status: remission status unspecified Depression F32.A Asthma J45.909 DVT prophylaxis Z29.9 Anemia D64.9 Anemia type: unspecified type (1) Anemia Anemia type: unspecified type Qualified Code(s): D64.9 - Anemia, unspecified (2) Bipolar disorder Active/Remission status: remission status unspecified Qualified Code(s): F31.9 - Bipolar disorder, unspecified
[2021-06-08] MEDS ORDERED: MELATONIN 3 MG TAB PO PRN (20:18)
[2021-06-08] MEDS: ACETAMINOPHEN 325 MG TAB PO PRN (21:52)
[2021-06-09 06:09] LABS: Basophils # (auto) 0.01 K/uL (0-0.2); Basophils % (auto) 0.2 %; Hematocrit (blood only) 29.9 % (37-47); Hemoglobin 8.9 g/dL (12.0-16.0); Lymphocytes # (auto) 1.82 K/uL (1.2-3.4); Lymphocytes % (auto) 30.4 %; Mean Corpuscular Hemoglobin 21.6 pg (25-34); Mean Corpuscular Hgb Conc 29.8 g/dL (32-36); Mean Corpuscular Volume 72.6 fL (80-100); Monocytes # (auto) 0.65 K/uL (0.11-0.59); Monocytes % (auto) 10.9 %; Neutrophils # (auto) 3.21 K/uL (1.4-6.5); Neutrophils % (auto) 53.5 %; Platelet Count 250 K/uL (130-400); RDW Coefficient of Variation 14.9 % (11.5-14.5); RDW Standard Deviation 39.4 fL (36.4-46.3); Red Blood Count 4.12 M/uL (4.2-5.4); White Blood Count 5.99 K/uL (4.8-10.8)
[2021-06-09 06:50] LABS: Hypochromasia Present
[2021-06-09 06:51] LABS: Albumin Globulin Ratio 1.2 (0.9-2); Albumin Level 3.5 gm/dl (3.4-5.0); BUN Creatinine Ratio 6.8 (10-20); Bilirubin,Total 0.3 mg/dl (0.2-1.0); Calcium 8.6 mg/dl (8.5-10.1); Creatinine Clr Calc Pharmacy 130.7 ml/min; Est GFR (African American) 131.4 ml/min; Est GFR (Non-African American) 113.4 ml/min; Magnesium 1.7 mg/dl (1.7-2.4); Potassium 3.6 mmol/L (3.5-5.1); Total Protein 6.5 gm/dl (6.0-8.3)
[2021-06-09 06:56] LABS: Ferritin 10.2 ng/ml (8-388)
[2021-06-09 07:01] LABS: Folate (Folic Acid) > 22.30 ng/ml (>5.38)
[2021-06-09 07:02] LABS: Vitamin B12 742 pg/ml (211-911)
--- NOTE | 2021-06-09 08:00 | Hospitalist Progress Note ---
Date of Service June 09, 2021 Assessment & Plan (1) Delirium: Plan: #Delirium Presented with significant agitation and confusion Suspect toxic encephalopathy 2/2 polypharmacy from psychiatric medications. UDS positive for MDMA which is likely from her Wellbutrin use-all else negative. CBC and UA unremarkable, patient is afebrile making infection unlikely. BMP unremarkable, without anion gap or hyponatremia. Head CT unremarkable for an acute process, making DIRECTOR OF RETAIL MARKETING pathology cause less likely. Patient did not report any recent head trauma, there is no evidence of this on physical exam. Patient's VS stable, not hypoxic or hypotensive. No hypoglycemia. Patient's H/H is stable. VBG and INR normal, ECG with early repolarization, troponin negative. Patient received volume resuscitation, Ativan, and IM Haldol on arrival Her mental status has improved throughout admission -Psych Cx'd -thinks either hypomania versus delirium from polypharmacy -she was on high doses of Lamictal 400 mg daily, Wellbutrin XL 300 mg daily, sertraline, and high doses of gabapentin (recent increase in 2 meds) -Discontinued Wellbutrin and gabapentin -Lower dose of Lamictal to 200 mg daily -Continue-sertraline 100 mg daily -PRN haldol for agitation -Follow-up with outpatient psychiatry after discharge #BPD -Continue Lamictal 200 mg daily. -Lamictal level ordered, pending. -Psych Cx see above #Depression -Continue sertraline 100 mg daily. #Asthma -Continue albuterol inhaler PRN. #Anemia Hx of chronic microcytic anemia,Hemoglobin down 8.9, some of this may be hemodilution.She reports long history of anemia and multiple family members with anemia. She denies knowing if she has sickle cell trait or thalassemia. She does have significant menorrhagia, suspect iron deficiency anemia from menorrhagia, She declines any hormonal methods to reduce her menorrhagia. -Follow CBC HGB:stable @ 8.9 -Likely needs to start ferrous sulfate 325 mg p.o. twice daily -Follow-up as an outpatient FENa:[] Code Status:[] DVT PPX:[] PT/OT:[] Case Management:[] Dispo:[] Percy Tripathi MD PGY 3, [facility] This chart was completed utilizing [employer] voice recognition software. Grammatical errors, random word insertions, pronoun errors, and in complete sentences are an occasional consequence of the system. Any questions or concerns about the content, text, or information contained within the body of this dictation should be addressed directly to the physician for clarification. (2) Bipolar disorder: (3) Depression: (4) Asthma: (5) Anemia: (6) DVT prophylaxis: Admission and Anticipated Discharge Date Admission Date: June 07, 2021 Results & Data Results & Data ([facility]) Vital Signs (Past 12 Hours) Vital Signs Temp Pulse Resp BP Pulse Ox 06/09/21 07:25 36.6 C 62 16 103/65 98 06/08/21 23:01 36.5 C 62 16 136/87 97 (1) Bipolar disorder Active/Remission status: remission status unspecified Qualified Code(s): F31.9 - Bipolar disorder, unspecified (2) Anemia Anemia type: unspecified type Qualified Code(s): D64.9 - Anemia, unspecified
[2021-06-09] MEDS: SERTRALINE HCL 100 MG TABLET PO SCH (08:31)
[2021-06-09] MEDS: lamoTRIgine 100 MG TAB PO SCH (10:27)
--- NOTE | 2021-06-09 12:00 | Discharge Summary ---
Date of Service June 09, 2021 Admission HPI Per Admitting Provider Patient is a 26-year-old female medical history of bipolar disorder and depression with previous suicide attempt, as well as asthma who was brought in by EMS as she was found in the hallway of a building thrashing around on the floor. EMS reported that they gave her benzos prior to arrival and this improved. she was not having a seizure and she was intermittently talking. Upon initial eval, ED staff reports "she was intermittently thrashing about in the stretcher and then will lay back and will intermittently be talking. She had some pressured speech and is very intermittently and easily agitated. She brian ed any suicidal or homicidal ideations.She denied any headache or change in vision. No chest pain or shortness of breath. No nausea, vomiting or diarrhea. She is here for school initially from outside the [place]. She smokes marijuana but denies all other drugs and alcohol". Patient was sedated during my initial exam, however upon re-examination she was more awake and disoriented. She is not able to provide a reliable history. 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 UDS positive for MDMA, all else negative. VSS, WNL. CBC unremarkable. BMP unremarkable, without anion gap or hyponatremia. UA unremarkable. Head CT unremarkable for an acute process. VBG and INR pending. Admission Exam Per Admitting Provider General: Pt is drowsy and confused but slowly becoming more awake; received 2 mg Ativan via EMS on arrival around 1400. 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 Neuro: Strength intact bilaterally and rated 5/5, no motor deficits, speech is clear, no peripheral sensory deficits Skin: no rash or erythema Principal Diagnosis Acute delirium Discharge Exam General: No acute distress HEENT: Normocephalic atraumatic Neck: No significant lymphadenopathy, trachea midline, normal to visual inspection Cardiac: Regular rate and rhythm, normal S1, normal S2, I did not appreciated any significant murmurs rubs or gallops, I did not appreciate any significant pedal edema, No calf tenderness, capillary refill is less than 3 seconds Respiratory: Clear to auscultation bilaterally with symmetrical chest rise, I did not appreciate any significant wheezes, rales, rhonchi, no increased work of breathing GI: Normal bowel sounds, soft, nontender in all 4 quadrants, nondistended MSK: No sensory or motor changes, moves all extremities without issue, extrem ities are warm and well-perfused Skin: [place], clean, dry, intact. Neuro: Alert and oriented x4 Psych: Calm, cooperative, logical thought process Discharge Data Allergies Allergy/AdvReac Type Severity Reaction Status Date / Time No Known Allergies Allergy Verified 06/07/21 15:48 Consultations 06/07/21 15:53 ED Decision to Admit Stat 06/07/21 22:35 Consult Psychiatry Routine Ordered Studies 06/07/21 14:00 CT head/brain wo con Stat Hospital Course (1) Delirium: #Delirium Presented with significant agitation and confusion Suspect toxic encephalopathy 2/2 polypharmacy from psychiatric medications. UDS positive for MDMA which is likely from her Wellbutrin use-all else negative. CBC and UA unremarkable, patient is afebrile making infection unlikely. BMP unremarkable, without anion gap or hyponatremia. Head CT unremarkable for an acute process, making MECHANISM ASSEMBLER pathology cause less likely. Patient did not report any recent head trauma, there is no evidence of this on physical exam. Patient's VS stable, not hypoxic or hypotensive. No hypoglycemia. Patient's H/H is stable. VBG and INR normal, ECG with early repolarization, troponin negative. Patient received volume resuscitation, Ativan, and IM Haldol on arrival Her mental status has improved throughout admission -Psych Cx'd -thinks either hypomania versus delirium from polypharmacy -She was on high doses of Lamictal 400 mg daily, Wellbutrin XL 300 mg daily, sertraline, and high doses of gabapentin (recent increase in 2 meds) -Discontinued Wellbutrin and gabapentin -Lower dose of Lamictal to 200 mg daily -Continue-sertraline 100 mg daily -Follow-up with outpatient psychiatry after discharge #BPD -Continue Lamictal 200 mg daily. -Lamictal level ordered, pending. -Psych Cx see above #Depression -Continue sertraline 100 mg daily. #Asthma -Continue albuterol inhaler PRN. #Anemia Hx of chronic microcytic anemia,Hemoglobin down 8.9, some of this may be hemodilution.She reports long history of anemia and multiple family members with anemia. She denies knowing if she has sickle cell trait or thalassemia. She does have significant menorrhagia, suspect iron deficiency anemia from menorrhagia, She declines any hormonal methods to reduce her menorrhagia. -Follow CBC HGB:stable @ 8.9 -Likely needs to start ferrous sulfate 325 mg p.o. twice daily will defer to outpt pcp -Follow-up as an outpatient (2) Bipolar disorder: (3) Depression: (4) Asthma: (5) Anemia: (6) DVT prophylaxis: Total Time Total Time Spent Total Time Spent (In Minutes): 46 Discharge Plan Discharge Items Patient Disposition: Home - Self-Care Reason For Visit: ACUTE DELIRIUM Discharge Diagnosis: Acute delirium Activity: Resume your previous activity Non-emergency contact: Primary Care Provider Call non-emergency contact if: you have any medication questions and your symptoms worsen Follow-up/Referrals: Compa Walker, [Primary Care Provider] - Diet: Regular Addtl Attending Provider Instructions: Care instructions: You were admitted to [facility] for treatment of acute delirium. A discharge summary will be sent to your primary care physician to ensure continuity of care. Please bring this discharge summary with you to your next office appointment so that your provider can review it at that time.While hospitalized numerous diagnostic tests were performed to determine the etiology of her symptoms. Additionally psychiatry was consulted. All of your diagnostic test came back within normal limits with the exception of low salt in your blood. It is gone after evaluation with psychiatry that your symptoms are largely due to incorrect medication dosing coupled with electrolyte derangement. We have made some medication changes as detailed below. Advised that you focus on your hydration status. It is also noted that you are slightly anemic, with a hemoglobin in your blood is low, we request that you follow-up with your primary care provider to discuss this further. Medication changes: Stop taking Wellbutrin Stop taking gabapentin Continue Lamictal at 200 mg daily Continue sertraline at 100 mg daily. Your medications have been called into the [facility] Follow-up appointments: - Keep all your follow-up appointments as already scheduled. If you cannot make an appointment, notify your provider. - Please call to request a follow-up appointment with your primary care physician within one week of discharge. Please let us know if you are unable to obtain an appointment Follow-up labs: - Please go to a lab nearest you and obtain the requested lab work. Please have this completed at least 3 hours before your doctor's appointment (or the day before your appointment if possible). Medications: - Your medication list has been reviewed and reconciled upon discharge to ensure accuracy and continuity of care. - You are provided with a list of all your current medications at this time. Please review this list closely and make note of any changes. - Please take all of your medications exactly as prescribed. - Tell your primary care provider if you cannot afford your medications. - Call your primary care provider if you are having any side effects or any other problems. - Call your primary care provider before taking any over the counter medications or supplements, including herbals and vitamins, because some of these may interact with your current medications and/or make your symptoms worse. Symptoms: Please call your primary care provider for symptoms including, but not limited to: fevers (temperatures greater than 100.4), chills, intractable nausea or vomiting, diarrhea, rash, shortness of breath, bleeding, pain, or if you experience any worsening of the symptoms that brought you to the hospital. For EMERGENCY and VERY SERIOUS health-related issues, such as chest pain, shortness of breath, or sudden onset of the symptoms that brought you to the hospital, you may need to call 911 or go directly to the Emergency Room It has been our privilege to take care of you during your hospital stay. And Above All Else Feel Better! Best Wishes, Percy Tripathi MD PGY2 Resident, Family & Community Medicine [facility] Residency at [facility] - [address], [address] MC: [address] [place] [address], [place] [address] Pending Studies at Discharge: No Stand-Alone Forms: My [facility], Smoking Cessation Medications and DC Order Prescriptions: New sertraline 100 mg Tablet 100 mg PO DAILY 30 Days Qty: 30 RF: 0 lamotrigine 100 mg Tablet 200 mg PO DAILY 30 Days Qty: 60 RF: 0 Continued albuterol sulfate 90 mcg/actuation aero powdr breath act w/sensor 1 inh inhalation Q4H PRN (Reason: Congestion) RF: 0 naproxen 500 mg tablet 500 mg PO BID PRN (Reason: Pain) RF: 0 sertraline 50 mg tablet 100 mg PO DAILY RF: 0 (DME) Wrist Brace Misc See Rx Instructions .ROUTE .MEDSUPPLY Qty: 1 RF: 0 lamotrigine 100 mg Tablet 200 mg PO DAILY Qty: 60 RF: 0 Discharge Orders: Discharge Order (Routine); Ordered 06/09/21 Ordered By: Percy Blunt/Other Patient Handouts: What is Delirium?, Who Is at Risk for Delirium?, How to Help Prevent Delirium, How Is Delirium Treated? Admission Data Admit Date/Time: 06/07/21 16:47 Attending Provider: Manuel Chapin Admit Provider: Bashir Rice Primary Care Provider: Compa Walker Other Providers: Bashir Rice ; Emilie Jacobson ; Paula Sung ; Kristi De La Torre ; Jon Lozano Other Interventions: Discharge Summary Assessment (RN) Last Done: 06/09/21 13:07 Supervising Physician Co-Signing Physician Notes Attending attestation Pt seen and examined in concert with Dr. Tripathi. In agreement with the documented findings as noted in the resident documentation with any exceptions or additions as noted here. Resting comfortably in bed, AAOx3 without acute complaint at present. On examination, S1/S2 nl RRR no MCG. CTAB. Abd NT/ND BS+ve. CNII-XII grossly intact as tested. Delirium - likely toxic encephalopathy from polypharmacy - psychiatry consult - medications reduced as noted in resident documentation with resolution of symptoms and no further recurrence. Encourage primary psychiatric follow up. Else see resident documentation as noted. Total attending time spent on this patient's case on the day of discharge: 40 minutes.
[2021-06-09] MEDS: ACETAMINOPHEN 325 MG TAB PO PRN (12:05)
[2021-06-13 08:27] LABS: MDA negative; MDEA negative; MDMA (Ecstasy) Urine, Confirm negative
--- NOTE | 2021-06-25 09:03 | Coding Query ---
CODING QUERY To promote full compliance with coding requirements relating to patient care, provider participation is requested in all cases of economics faculty member uncertainty. Please assist us with the question(s) below: Coding Question(s): The Discharge Summary documents regarding Acute Delirium, " Suspect toxic encephalopathy 2/2 polypharmacy from psychiatric medications", and, "Psych Cx'd -thinks either hypomania versus delirium from polypharmacy -She was on high doses of Lamictal 400 mg daily, Wellbutrin XL 300 mg daily, sertraline, and high doses of gabapentin (recent increase in 2 meds) -Discontinued Wellbutrin and gabapentin -Lower dose of Lamictal to 200 mg daily -Continue-sertraline 100 mg daily", with documentation on the 06/08 Psychiatric Consultation of, "Spoke with patient's outpatient therapist at [place] who confirmed that her gabapentin was increased to 900mg TID during his visit with her psychiatrist Dr. Alvarado on 06/05/21", and, "A/P: Continue to feel that holding gabapentin and Wellbutrin are appropriate given concerns for possible contribution from polypharmacy. Will keep lamictal at 200mg qd as this is the FDA-max dose recommendation and keep sertraline at 100mg qd given small possibility that symptoms emerged due to medication-induced hypomania. Reviewed with Tereza that an additional mood stabilizer such as an antipsychotic medication like abilify could be considered in the future if symptoms of elliott occur;she declines starting anything currently and feels comfortable discussing this with her outpatient provider", and, "26 yo woman with a history of BPAD admitted after bizarre behavior and confusion concerning for acute encephalopathy. Diagnostically unclear but suspect possible hypomania due to recent increase in sertraline and Wellbutrin XL versus encephalopathy from accidental misuse/overuse of gabapentin versus medication reaction from polypharmacy versus confusion in setting of rapid dose reduction in gabapentin (sounds like she possibly went from 600mg TID to 900mg daily?)". It is not clear if the Suspected toxic encephalopathy 2/2 polypharmacy from psychiatric medications was due to the patient taking her medication as prescribed, with the recent increase in dosage, or if it was due to accidental misuse/overuse of gabapentin. Please specify below, in your clinical opinion. (x ) likely due to polypharmacy with patient taking medication as prescribed ( ) likely due to polypharmacy with patient accidental misuse/overuse of gabapentin ( ) Other: Please Specify Physician's Response(s): Thank you Sailaja Rodriguez Principal Diagnosis: "that condition established after study, to be chiefly responsible for occasioning the admission of the patient to the hospital for care." Co-Existing Principal Diagnosis: "when two or more diagnoses equally meet the criteria for principal diagnosis as determined by the circumstances of admission, diagnostic work up, and/or therapy provided, and the Alphabetic Index, Tabular List, or another coding guideline does not provide sequencing direction, any one of the diagnoses may be sequenced first." "When the physician has documented what appears to be a current diagnosis in the body of the record, but has not included the diagnosis in the final diagnostic statement, the physician should be asked whether the diagnosis should be added." (Source [facility]oding [facility] 2 QTR90. p3-4) LAITH
== END 2021-06-09 13:41 | disposition home or self-care (01) | DRG 92 ==
LOC: ED 13:47 → 3N 16:47 → SUATTDRO 16:47 → 3N 21:37 → 3W 06-08 16:25